=== PATIENT | female | born 1940 | race Caucasian/White ===

== ENCOUNTER 2023-09-26 05:57 | Inpatient (IN) | payer OTHER, SELFPAY ==
--- NOTE | 2023-07-25 11:47 | CM ---
Addendum entered by Tomasa Franco 09/12/23 09:51:
Patient's surgery date has been changed to 09/26/23. Spoke again with patient. She now states that she does not have a rolling walker (hers doesn't have wheels) or a single point cane; she will be getting both from [facility]. She was reminded to watch the
online education program.
Original Note:
Patient is scheduled for an elective L TKR on 08/29/23. Spoke with patient prior to surgery via telephone. Introduced role of Orthopedic Navigator. Patient reports that her son lives with her. Her home is two stories. There is one step to enter and
she has a first floor set up. She currently functions independently. She has a cane and rolling walker. She has never had VN services. PCP is Britta Forrest.
Discussed orthopedic program and post surgical plans. Reviewed anticipated length of stay and that goal is for her to return home at discharge. Also reviewed outpatient PT. Patient is in agreement with tentative plan but will not have transportation
for outpatient PT and will need VN services. She will have support from her son when she goes home.
Patient will complete online education.
Plan: Orthopedic Navigator will remain available to assist with the care of patient and will reassess discharge needs after surgery.
[2023-08-09 12:50] VITALS: BMI 31.0
[2023-08-09 13:53] LABS: Hematocrit 39.1 % (37.0-47.0); Hemoglobin 12.9 g/dL (12.0-16.0); Mean Corpuscular Hgb 30.6 pg (27.0-31.0); Mean Corpuscular Volume 92.9 fL (81.0-99.0); Mean Platelet Volume 9.7 fL (7.4-10.4); Platelet Count 278 10^3/uL (130-400); Red Blood Cell Count 4.21 10^6/uL (4.20-5.40); Red Cell Dist. Width 12.9 % (11.5-14.5)
[2023-08-09 14:03] LABS: ALT (SGPT) 16 U/L (0-35); AST (SGOT) 23 U/L (14-36); Albumin 3.7 g/dl (3.5-5.0); Alkaline Phosphatase 81 U/L (38-126); Blood Urea Nitrogen 16 mg/dl (7-17); Calcium 8.8 mg/dl (8.4-10.2); Carbon Dioxide 29 mmol/L (22-30); Chloride 93 mmol/L (98-107); Estimated Creatinine Clearance 51 ml/min; Glucose 113 mg/dl (70-99); Potassium 4.2 mmol/L (3.5-5.1); Sodium 134 mmol/L (135-145); Total Bilirubin 0.8 mg/dl (0.2-1.3); Total Protein 5.9 g/dl (6.3-8.2); eGFR > 60.00
[2023-08-09 16:09] VITALS: BMI 31.0
[2023-08-10 08:49] LABS: Glycohemoglobin (HgbA1c) 5.7 % (4.0-5.6)
[2023-09-26] VITALS (23 sets, daily range): BP systolic 94–154; BP diastolic 43–81; PULSE 73; O2SAT 96; BMI 31.0
[2023-09-26] MEDS: CELEBREX 200 MG PO (06:30)
[2023-09-26] MEDS: TYLENOL 650 MG PO ×4 (06:30→23:05)
[2023-09-26] MEDS: NORMOSOL-R 1000 IV (06:31)
[2023-09-26] MEDS: DILAUDID 0.5 MG IV (10:26)
[2023-09-26] MEDS: DILAUDID 0.25 MG IV ×2 (10:46→13:13)
[2023-09-26] MEDS: NSS 1000 IV (12:46)
--- NOTE | 2023-09-26 14:36 | PTCARENOTE ---
Pt arrived to [facility] from PACU s/p L TKR. L knee aquacel C/D/I, NV intact. IVF infusing, satting 99% on 2L NC. Pt states no pain at this time. Pt oriented to call lozoya and room, bed locked and in lowest position, call lozoya within reach.
[2023-09-26] MEDS: LEXAPRO 10 MG PO (15:59)
[2023-09-26] MEDS: SYNTHROID PO (15:59)
[2023-09-26] MEDS: ANCEF 5 IV ×2 (16:00→23:05)
[2023-09-26] MEDS: PROTONIX 40 MG PO (16:00)
[2023-09-26] MEDS: LIPITOR 10 MG PO (17:29)
[2023-09-26] MEDS: DILAUDID 2 MG PO (18:11)
[2023-09-26] MEDS: BACTROBAN 2% OINTMENT 1 APPLIC NASAL (20:58)
[2023-09-26] MEDS: SENOKOT 17.1999999999999993 MG PO (20:58)
[2023-09-26] MEDS: COLACE 100 MG PO (20:58)
[2023-09-26] MEDS: COREG 12.5 MG PO (20:58)
[2023-09-26] MEDS: DECADRON 6 MG IV (20:59)
[2023-09-26] MEDS: ELIQUIS 2.5 MG PO (20:59)
[2023-09-27 03:30] VITALS: BP 160/69
[2023-09-27] MEDS: SYNTHROID 75 MCG PO (04:05)
[2023-09-27] MEDS: TYLENOL 650 MG PO ×3 (04:05→12:28)
[2023-09-27 07:00] VITALS: BP 139/71
--- NOTE | 2023-09-27 07:28 | W.PN.ORTHO ---
Today's Communication / Plan
-
Discharge home later today
Assessment
.
Distal Motor Intact: Yes
Dressing:
Clean, dry and intact.
Assessment:
Doing well postop
Plan
.
Surgery / Date: 09/26/2023 L TKA Isadora
DVT Prophylaxis: Other (Eliquis)
Activity:
Out of bed.
PT/OT
Subjective
.
.:
Patient resting comfortably. Doing well
Vital Signs and Labs
.
Vital Signs and Labs:
Lab Results
08/09/23 12:42
08/09/23 12:42
Temp Pulse Resp BP Pulse Ox
98.3 F 94 17 160/69 98
09/27/23 03:30 09/27/23 03:30 09/27/23 03:30 09/27/23 03:30 09/27/23 03:30
Non-invasive Hgb result: 14.3
Physical Exam
-
Pulm: nonlabored
CV: regular
Abd: benign
EXT: LLE: NVI distally. Calf soft. Able to fully extend
--- NOTE | 2023-09-27 08:49 | CM ---
Addendum entered by Tomasa rFanco 09/27/23 11:50:
Patient did well in therapy. She has no concerns about going home. VN services again reviewed.
Original Note:
Reviewed chart and held rounds with PT, OT and nursing. Patient admitted as planned for elective L TKR. Met with patient at bedside. Confirmed information previously obtained for assessment. Also discussed discharge plans. The plan is for patient to
return home at discharge. Her son and daughters will be home with her for through the weekend. Reviewed VN services including start of care (tentatively 09/28), services to be ordered (PT, SN) and frequency/duration of services. Options list provided
and PAC data reviewed. Patient selects VN.
Patient has a rolling walker and a cane at home.
VN referral was completed and sent to [facility] through [employer] with request for start of care on 09/28. Confirmation received of their ability to accept case. classification clerk to fax discharge instructions to [facility] when complete.
Patient will use [facility] pharmacy for discharge prescriptions.
[2023-09-27 09:40] VITALS: BP 142/57; BP 99/58; PULSE 88; PULSE 93; O2SAT 94
[2023-09-27] MEDS: DECADRON 6 MG IV (10:01)
[2023-09-27] MEDS: ELIQUIS 2.5 MG PO (10:03)
[2023-09-27] MEDS: COREG 12.5 MG PO (10:04)
[2023-09-27] MEDS: LEXAPRO 10 MG PO (10:07)
[2023-09-27] MEDS: PROTONIX 40 MG PO (10:07)
[2023-09-27] MEDS: ORETIC 12.5 MG PO (10:07)
[2023-09-27] MEDS: COLACE 100 MG PO (10:07)
[2023-09-27] MEDS: SENOKOT 17.1999999999999993 MG PO (10:08)
[2023-09-27] MEDS: DILAUDID 2 MG PO (10:08)
[2023-09-27] MEDS: BACTROBAN 2% OINTMENT 1 APPLIC NASAL (10:09)
--- NOTE | 2023-09-27 10:27 | W.PN.ORTHO ---
Today's Communication / Plan
-
d/c
Assessment
.
Distal Motor Intact: Yes
Dressing:
Clean, dry and intact.
Assessment:
Restrictive lung disease/chronic hypoxia
--sats stable RA
Hx PE/DVT unprovoked 2019--Eliquis resumed-SCD device for home
Plan
.
Surgery / Date: 09/26/2023 L TKA Isadora
DVT Prophylaxis: Other (Eliquis+ SCD)
Activity:
Out of bed.
PT/OT
Discharge Plan: Home w/ VN
Subjective
.
.:
Patient resting comfortably.
Vital Signs and Labs
.
Vital Signs and Labs:
Lab Results
08/09/23 12:42
08/09/23 12:42
Temp Pulse Resp BP Pulse Ox
98.2 F 94 18 139/71 97
09/27/23 07:00 09/27/23 07:00 09/27/23 07:00 09/27/23 07:00 09/27/23 07:00
Non-invasive Hgb result: 14.3
Physical Exam
-
HEENT: No pallor, cyanosis, or jaundice. Throat clear.
NECK: Supple. No JVD.
RESPIRATORY: Lungs clear to auscultation.
CVS: S1, S2 normal. RRR.� No murmur, rub or gallop.
ABDOMEN: Soft, non-tender. No distension. BS+/normal.
EXTREMITIES: strength equal, no calf pain with palpation
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 No focal deficits. contact lens manufacturer grossly intact
--- NOTE | 2023-09-27 10:42 | W.DS.TRANS ---
DC Summary - Non Linear Editor
-
Discharge Instructions:
Sleep Apnea Risk Low
Discharge Diagnosis/Procedures 09/26/2023 L TKA Isadora
Diet As tolerated
Activity With Walker
Driving Restrictions No driving
Bathing Restrictions OK to Shower
Other Services PT,VN
Instructions:
Stand-Alone Forms: Total Hip/Knee Replacement D/C
Changes to Home Medications: Yes
Discharge Medications:
DC Medications w/original date entered in [employer]
cholecalciferol (vitamin D3) 25 mcg (1,000 unit) tablet 1,000 units PO HS Supplement 05/03/19
levothyroxine 75 mcg tablet 75 mcg PO DAILY Thyroid 05/03/19
simvastatin 20 mg tablet 20 mg PO QPM High cholesterol 12/15/19
apixaban 2.5 mg tablet (Eliquis) 2.5 mg PO BID Blood Clot Prevention/Tx 08/02/23
escitalopram oxalate 10 mg tablet 10 mg PO DAILY depression 08/02/23
hydrochlorothiazide 12.5 mg tablet 12.5 mg PO DAILY Blood Pressure 08/02/23
losartan 25 mg tablet 25 mg PO DAILY Blood Pressure 08/02/23
omeprazole 40 mg capsule,delayed release 40 mg PO DAILY Gastrointestinal Issue 08/02/23
mupirocin 2 % topical ointment 1 applic topical BID infection prevention #1 tube 08/09/23
carvedilol 25 mg tablet (Coreg) 25 mg PO BID Blood Pressure 09/13/23
acetaminophen 325 mg capsule (Tylenol) 650 mg PO QID #2 caps 09/27/23
dexamethasone 4 mg tablet 4 mg PO BID inflammation #6 tabs 09/27/23
docusate sodium 100 mg capsule (Colace) 100 mg PO BID stool softner #1 cap 09/27/23
gabapentin 300 mg capsule 300 mg PO HS sleep/pain #10 caps 09/27/23
magnesium hydroxide 400 mg/5 mL oral suspension (Milk of Magnesia) 30 ml PO HS PRN Constipation #1 mL 09/27/23
oxycodone 5 mg tablet 5 - 10 mg PO Q6HPRN PRN 1 tab moderate-2 tabs severe pain #30 tabs 09/27/23
sennosides 8.6 mg tablet (Senokot) 17.2 mg PO BID laxative #2 tabs 09/27/23
Home Medication Changes
dexamethasone 4 mg tablet 4 mg PO BID inflammation #6 tabs 09/27/23
gabapentin 300 mg capsule 300 mg PO HS sleep/pain #10 caps 09/27/23
oxycodone 5 mg tablet 5 - 10 mg PO Q6HPRN PRN 1 tab moderate-2 tabs severe pain #30 tabs 09/27/23
Pending Results: No
[2023-09-27 11:00] VITALS: BP 127/57
[2023-09-27 11:57] VITALS: BP 87/55; PULSE 75; O2SAT 94
== END 2023-09-27 14:10 | disposition home health service (06) | DRG 470 ==
LOC: 2 SOUTH 05:57
PROVIDERS: ADMITTING PHYSICIAN Orthopaedic Surgery; FAMILY PHYSICIAN Internal Medicine
PROC: 0SRD0J9 Replacement of Left Knee Joint with Synthetic Substitute, Cemented, Open Approach (ICD-10-PCS; 2023-09-26)
DX: M17.12 Unilateral primary osteoarthritis, left knee (principal); Z68.31 Body mass index [BMI] 31.0-31.9, adult; E66.9 Obesity, unspecified; I10 Essential (primary) hypertension; E78.5 Hyperlipidemia, unspecified; I27.20 Pulmonary hypertension, unspecified; Z87.891 Personal history of nicotine dependence; K21.9 Gastro-esophageal reflux disease without esophagitis; E03.9 Hypothyroidism, unspecified; J98.4 Other disorders of lung; R09.02 Hypoxemia; Z79.01 Long term (current) use of anticoagulants; Z86.711 Personal history of pulmonary embolism
CPT/HCPCS: 36415; 73560; 80053; 83036; 85027; 87070; 97110; 97116; 97162; 97166; 97530; 99406; C1713; C1776

== ENCOUNTER 2023-10-08 14:12 | Inpatient (IN) | payer OTHER, SELFPAY ==
[2023-10-08 09:27] VITALS: BMI 27.8
[2023-10-08 09:30] VITALS: BP 132/53
[2023-10-08] MEDS: DUONEB 3 ML INH ×2 (09:49→19:38)
[2023-10-08 09:55] LABS: % Basophils 0.4 % (0-2); % Eosinophils 3.3 % (0-6); % Immature Granulocytes 1.4 % (0-0.5); % Lymphocytes 11.1 % (20.5-51.1); % Monocytes 16.5 % (1.7-9.3); % Neutrophils 67.3 % (42.2-75.2); Absolute Eosinophils 0.3 10^3/uL (0-0.7); Absolute Immature Granulocytes 0.1 10^3/uL (0-0.05); Absolute Lymphocytes 0.9 10^3/uL (1.2-3.4); Absolute Monocytes 1.3 10^3/uL (0.1-0.6); Absolute Neutrophils 5.3 10^3/uL (1.4-6.5); Hematocrit 30.1 % (37.0-47.0); Hemoglobin 9.9 g/dL (12.0-16.0); Mean Corp Hgb Conc. 32.9 g/dL (33.0-37.0); Mean Corpuscular Hgb 30.3 pg (27.0-31.0); Mean Platelet Volume 8.9 fL (7.4-10.4); Nucleated Red Blood Cells % 0 %; Platelet Count 348 10^3/uL (130-400); Red Blood Cell Count 3.27 10^6/uL (4.20-5.40); Red Cell Dist. Width 13.2 % (11.5-14.5); White Blood Cell Count 7.8 10^3/uL (4.8-10.8)
[2023-10-08 10:10] LABS: COVID-19 Antigen Negative (Negative)
[2023-10-08 10:12] LABS: Lactic Acid 0.8 mmol/L (0.7-2.0)
[2023-10-08 10:13] LABS: ALT (SGPT) 15 U/L (0-35); AST (SGOT) 24 U/L (14-36); Albumin 3.2 g/dl (3.5-5.0); Alkaline Phosphatase 87 U/L (38-126); Blood Urea Nitrogen 24 mg/dl (7-17); Calcium 8.6 mg/dl (8.4-10.2); Carbon Dioxide 27 mmol/L (22-30); Chloride 96 mmol/L (98-107); Estimated Creatinine Clearance 50 ml/min; Glucose 113 mg/dl (70-99); Potassium 4.6 mmol/L (3.5-5.1); Sodium 127 mmol/L (135-145); Total Bilirubin 0.6 mg/dl (0.2-1.3); Total Protein 5.6 g/dl (6.3-8.2); eGFR > 60.00
[2023-10-08 10:14] LABS: INR 1.18; PT 15.1 Sec (11.4-14.6)
[2023-10-08 10:16] LABS: APTT 32.4 Sec (23.4-35.0)
[2023-10-08 10:24] LABS: Troponin I 0.013 ng/ml
[2023-10-08 10:46] LABS: NT-proBNP 1310 pg/ml
--- NOTE | 2023-10-08 11:07 | ED.GENMED ---
History of Present Illness
General
Chief Complaint: Breathing Problem
Source: patient and ambulance crew
Exam Limitations: none
Time Seen by Provider: 10/08/23 09:23
Nursing documentation reviewed up to this point in time: agreed with
Travel History
Have you had any contact with someone who has COVID-19?: No
Do you have any symptoms of coronavirus? Fever > 100 degrees, chills, cough, shortness of breath, sore throat, loss of taste or smell, muscle aches, or headache?: Yes
Symptoms:: cough
History of Present Illness
History of Present Illness:
83-year-old female with a past medical history of PE on Eliquis, hypertension, hyperlipidemia, hypothyroidism, GERD who presents to the emergency room for evaluation of shortness of breath in the setting of recent cough and congestion. Patient
notably had left total knee replacement 2 weeks ago and has been in rehab since. Patient says that she has had a cough since her surgery she says for about 2 weeks. She says cough has been much worse over the past week. Over the past few days she
has noticed that she is starting to develop some shortness of breath. Last night she says she woke up in the middle the night severely short of breath, was found to be hypoxic at rehab. EMS was called. On EMS arrival she was apparently wheezing.
She was given Decadron and 2 DuoNeb's by EMS. She says that she did not have any significant improvement. She denies any chest pain. She denies any known fevers or chills. She has had some postoperative swelling in the leg and postoperative pain
but is generally improving. She denies any other complaints today. She is on Eliquis and has been compliant although was held 3 days perioperatively.
Past History
Past History
ED Past Medical History: GERD, HTN, Hypercholesterolemia, Hypothyroidism and Other (Pulmonary embolism)
ED Past Surgical History: Orthopedic (Foot surgery)
Social History
Tobacco: Former smoker
Alcohol: Occasional
Drug: None
Living: with family
Employment: Retired
Family History
Family History: Other (Mother with cancer of the pancreas father with cancer of the lung)
Review of Systems
Review of Systems
All Other Systems: ROS reviewed and negative except as documented in HPI and ROS
Constitutional: Denies fever or chills
EENT: Reports runny nose; Denies sore throat
Respiratory: Reports cough and trouble breathing
Cardiac: Denies chest pain or palpitations
ABD/GI: Denies abdominal pain, nausea, vomiting or diarrhea
: Denies dysuria, frequency or flank pain
Musculoskeletal: Denies neck pain or back pain
Neurological: Denies headache, weakness or numbness
Phy Exam
Physical Exam
Physical Exam:
General: Awake, alert, oriented x3
Head: Normocephalic, atraumatic
Eyes: Conjunctiva normal, sclera anicteric
Throat: Airway intact, handling secretions
Neck: Trachea midline, supple without meningismus
Lungs: Patient is speaking in full sentences, mild tachypnea, mild hypoxia to 88% on room air requiring 2 L nasal cannula; she does have bilateral wheezing throughout all lung morgan and occasional coughing
Heart: Tachycardia with regular rhythm, no murmurs, gallops, or rubs
Abd: Soft, non distended, nontender
Neuro: Cranial nerves grossly intact, speech fluid
Skin: no rash
Extremities: Patient has +2 edema in the left lower extremity with some slight erythema of the lower leg, merari in place along incision left anterior knee appears clean no drainage; good strong pulses in all extremities
Scores
Heart Failure Risk
Heart Failure Risk Score: Not Applicable
Heart Score for Chest Pain Patients
STEMI patient?: Not applicable
Withdrawal Assessment of Alcohol
Withdrawal Assessment Completed?: Not applicable
Course
Orders/Labs/Results
Orders:
Orders
10/08/23 09:34
Electrocardiogram (*1) Urgent
Reason for Study: Shortness of Breath
EKG- Treatment ONCE
CR Chest Portable - 1 View Urgent
Comment:
Reason For Exam: sob, cough, hypoxia
Reason Study Needs to be Portable: Unable to Transport
10/08/23 09:35
Ipratropium/Albuterol Sulfate [Duoneb] 3 ml INH R NOW STA
10/08/23 09:39
Blood Culture Q30M
LEONEL Source: Blood/Venous
Specimen Description:
10/08/23 09:40
COVID-19 Antigen Urgent
Source: Nasal Swab
Complete Blood Count/With Diff Urgent
Comprehensive Metabolic Panel Urgent
Lactate Level [Lactic Acid] Urgent
NT-proBNP Urgent
PTT Urgent
Prothrombin Time Urgent
Troponin I Urgent
Influenza A+B Rapid Molecular Urgent
LEONEL Source: Nasal Swab
Specimen Description:
10/08/23 10:02
Blood Culture Q30M
LEONEL Source: Blood/Venous
Specimen Description:
10/08/23 10:39
CT Chest Pe Study Urgent
Comment:
Reason For Exam: dyspnea, hypoxia, 2 weeks s/p knee replacement
Abnormal Lab Results
10/08/23
09:40
RBC 3.27 L 10^6/uL
(4.20-5.40)
Hgb 9.9 L g/dL
(12.0-16.0)
Hct 30.1 L %
(37.0-47.0)
MCHC 32.9 L g/dL
(33.0-37.0)
Abs Immat Gran (auto) 0.1 H 10^3/uL
(0-0.05)
Absolute Lymphs (auto) 0.9 L 10^3/uL
(1.2-3.4)
Absolute Monos (auto) 1.3 H 10^3/uL
(0.1-0.6)
Immature Gran % 1.4 H %
(0-0.5)
Lymphocytes % 11.1 L %
(20.5-51.1)
Monocytes % 16.5 H %
(1.7-9.3)
PT 15.1 H Sec
(11.4-14.6)
Sodium 127 L mmol/L
(135-145)
Chloride 96 L mmol/L
(98-107)
BUN 24 H mg/dl
(7-17)
Glucose 113 H mg/dl
(70-99)
Total Protein 5.6 L g/dl
(6.3-8.2)
Albumin 3.2 L g/dl
(3.5-5.0)
10/08/23 09:40
10/08/23 09:40
Vital Signs
Initial and Last Documented VS:
Initial Vital Signs
Temp Pulse Resp BP Pulse Ox
37.1 C 101 20 132/53 93
10/08/23 09:30 10/08/23 09:30 10/08/23 09:30 10/08/23 09:30 10/08/23 09:30
Last Documented Vital Signs
Temp Pulse Resp BP Pulse Ox
37.1 C 87 18 132/53 95
10/08/23 09:30 10/08/23 11:30 10/08/23 11:30 10/08/23 09:30 10/08/23 11:30
MDM/Problems Addressed
Differential Diagnosis Includes:
Pneumonia, bronchitis, PE
MDM/Problems Addressed:
83-year-old female with past medical history as documented presents to the emergency department for evaluation of worsening shortness of breath in the setting of recent cough; she had left knee replacement 2 weeks ago and has been in rehab. She was
apparently quite hypoxic at rehab facility, received steroid and DuoNeb prehospital. She arrives to us tachycardic, tachypneic, hypoxic requiring 2 L nasal cannula. Normotensive. Afebrile. Exam as above. Plan to place an IV check labs including
a CBC and a CMP. Will check a troponin and a BNP. Will swab for COVID and influenza. Check a chest x-ray to rule out pneumonia. Would have a low threshold for CTA to rule out PE�somewhat lower suspicion as she does have wheezing and has been on
Eliquis but it was held perioperatively.
Labs reviewed: CBC shows anemia 9.9�decreased from prior but in the setting of recent operation, will need to trend. CMP shows hyponatremia with a glucose of 113. Troponin undetectable, BNP is slightly elevated but she has no other signs of CHF.
Her chest x-ray shows no edema, no pneumonia on my review. She does still have some tachycardia although could be related to DuoNebs with her tachycardia, tachypnea, hypoxia and normal chest x-ray will check a CTA to rule out PE in an abundance of
caution. Will plan for admission pending CT.
CTA negative for PE. Patient gissell on 2 L nasal cannula, still has wheezing and coughing. Suspect acute respiratory failure with hypoxia secondary to acute bronchitis. Will plan for admission for continued management. Discussed with hospitalist
for admission.
Chronic conditions affecting care:
DVT/PE
*Radiology
Radiology exam reviewed: radiology read reviewed
*Pulse Oximetry
Patient hypoxic: no
*EKG
Interpreted by ED Provider?: Yes
Heart Rate: 89
Rate: normal
Rhythm: sinus
[place]: left axis deviation
Interval: normal interval
QRS Pattern: normal QRS
Ischemia: non-specific ST changes
*Critical Care Note
Total Time (30-74mins, 75-104mins- exclusive of procedures): Not Applicable
Data Reviewed
Source: patient, records and ambulance crew
Patient Management
Discussion with other providers: Hospitalist (Discussed with hospitalist)
Escalation/DeEscalation of care consider admission/obs:
Admission indicated
ED Attending Note
-
Portions of this chart may have been created with voice recognition software.� Occasional wrong word or��sound alike� substitutions may have occurred due to the inherent limitations of voice recognition software.
Discharge Plan
Departure
Patient Disposition: Admit
Date of Disposition: 10/08/23
Time of Disposition: 12:03
Admit to doctor: Niyah
Presentation/result/management discussed w/ accepting MD/DO: Hospitalist
Discharge Problem:
Hypoxic respiratory failure, Acute bronchitis, Anemia
Prescriptions:
No Action
levothyroxine 75 MCG tablet
75 mcg PO DAILY
cholecalciferol (vitamin D3) 1,000 UNITS tablet
1,000 units PO HS
simvastatin 20 MG tablet
20 mg PO QPM
omeprazole 40 mg Capsule,Delayed Release(Dr/Ec)
40 mg PO DAILY
losartan 25 mg Tablet
25 mg PO DAILY
escitalopram oxalate 10 mg Tablet
10 mg PO DAILY
hydrochlorothiazide 12.5 mg Tablet
12.5 mg PO DAILY
Eliquis 2.5 mg Tablet
2.5 mg PO BID
mupirocin 2 % ointment
1 applic topical BID Qty: 1 0RF
Patient Comments:
started treatment on saturday09/23/23 in am and was taking BID, last took at home 09/26/23 in am
carvedilol [Coreg] 25 mg Tablet
25 mg PO BID
docusate sodium [Colace] 100 mg capsule
100 mg PO BID Qty: 1 0RF
sennosides [Senokot] 8.6 mg tablet
17.2 mg PO BID Qty: 2 0RF
magnesium hydroxide [Milk of Magnesia] 400 mg/5 mL suspension
30 ml PO HS PRN (Reason: Constipation) Qty: 1 0RF
dexamethasone 4 mg tablet
4 mg PO BID Qty: 6 0RF
Rx Instructions:
take with food
post-op use only
gabapentin 300 mg capsule
300 mg PO HS Qty: 10 0RF
oxycodone 5 mg tablet
5 - 10 mg PO Q6HPRN PRN (Reason: 1 tab moderate-2 tabs severe pain) Qty: 30 0RF
Rx Instructions:
Dx surgery
ongoing therapy
Post-op use
acetaminophen [Tylenol] 325 mg capsule
650 mg PO QID Qty: 2 0RF
Referrals:
Dilcia Forrest MD [Family Provider] -
Interventions
Interventions:
*Risk Screen - Suicide Last Done: 10/08/23 09:31
*General Assessment Last Done: 10/08/23 09:30
*Neglect/Abuse Screening Last Done: 10/08/23 09:31
ED- Fall Risk Assessment Last Done: 10/08/23 11:37
*ED COVID-19 Vaccine History Last Done: 10/08/23 09:48
ED- Cardiac Assessment Last Done: 10/08/23 09:31
ED- Pulmonary Assessment Last Done: 10/08/23 09:31
--- NOTE | 2023-10-08 13:19 | HPS.HSE ---
Addendum entered and electronically signed by Fawad Wolff MD 10/08/23 16:58:
Pt remains very sob
Seen independently and agree with sales and marketing analyst note
Lungs - holo expiratory high freq wheeze with end inspiratory wheeze with coughing spasms on forced expiration
CV reg
Ext no edema
CT-A neg for PE
Imp: active wheeze with respiratory distress most consistent with asthmatic bronchitis
s/p Lt TKR 09/26/23
Hyponatremia
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
P:steroids
empiric abx
continue Eliquis
Pulm consult
Original Note:
Family Physician
-
Family Physician: Dilcia Forrest
Chief Complaint
-
Shortness of breath, cough, wheezing
History of Present Illness
83-year-old female from home, complaining of shortness of breath with productive white cough, wheezing x 5 days. She is status post left TKR by Dr. Muir on 09/26/2023 2 weeks ago she was noted to be hypoxic and short of breath at 4 AM when she
called EMS. she was given Decadron and DuoNebs by EMS. She is on Eliquis for DVT/PE prophylaxis as she had history of DVT PE post-COVID in 2019. She denies fever, chills, chest pain, palpitations, abdominal pain, nausea, vomiting, diarrhea,
hematuria, bloody stools, urinary symptoms. She has postop swelling in the left leg and knee with merari intact. She has home PT coming. Postop discharge note states kejlr-rx-abqe hemoglobin was 14.3 with preop 12.9 although today is 9.9 serum.
The patient is on current Eliquis status post left knee replacement for DVT/PE prophylaxis.
PMH DAILY ALCOHOL USE HTN, HLD, hypothyroidism, moderate/severe AR pulmonary HTN, restrictive lung disease with chronic hypoxia, tobacco abuse/ex-smoker, GERD, PE/DVT unprovoked 2019 post COVID on Eliquis, OA, obesity, psoriasis
Medical History
Past Medical History
Past Medical History: Reports Other
Additional Past Medical History:
Alcohol use/abuse
HTN
HLD
hypothyroidism
moderate/severe AR pulmonary HTN
restrictive lung disease with chronic hypoxia
tobacco abuse/ex-smoker
GERD
Saddle PE/DVT unprovoked 2020 post COVID December 2019 on Eliquis, COVID 30 May 2020
OA
obesity
psoriasis
Past Surgical History: Reports Other
Additional Past Surgical History:
Cataract extraction
Left foot hammertoe repair
Left total knee arthroplasty 08/09/2023
Left TKR 09/26/2023 Dr. Muir
Social History
Tobacco: Former Smoker (Quit 40 years ago)
Alcohol: Daily (1 to 2 glasses a day)
Drug: None
Personal: Single
Living: With Family
Employment: Retired
Family History
Family History: Not pertinent
Allergies / Home Medications
Allergies reflects when Allergies were last updated in [facility].
Home Medications with original date entered in [facility]
Allergy/Medication List:
Allergies
Allergy/AdvReac Type Severity Reaction Status Date / Time
codeine [Codeine] Allergy Itching, Verified 09/26/23 06:10
skin
crawling
Home Medications
levothyroxine 75 mcg tablet 75 mcg PO DAILY Thyroid 05/03/19
simvastatin 20 mg tablet 20 mg PO HS High cholesterol 12/15/19
apixaban 2.5 mg tablet (Eliquis) 2.5 mg PO BID Blood Clot Prevention/Tx 08/02/23
escitalopram oxalate 10 mg tablet 10 mg PO DAILY depression 08/02/23
hydrochlorothiazide 12.5 mg tablet 12.5 mg PO DAILY Blood Pressure 08/02/23
losartan 25 mg tablet 25 mg PO DAILY Blood Pressure 08/02/23
carvedilol 25 mg tablet (Coreg) 25 mg PO BID Blood Pressure 09/13/23
acetaminophen 500 mg tablet (Tylenol Extra Strength) 500 mg PO Q4HPRN PRN mild pain 10/08/23
budesonide 0.5 mg/2 mL suspension for nebulization 0.5 mg inhalation R DAILY 10/08/23
cholecalciferol (vitamin D3) 1 tab PO HS 10/08/23
collagen 1 dose PO DAILY 10/08/23
esomeprazole magnesium 40 mg capsule,delayed release 40 mg PO DAILY 10/08/23
ipratropium 0.5 mg-albuterol 3 mg (2.5 mg base)/3 mL nebulization soln 3 ml inhalation R DAILY 10/08/23
mnmglhvsvomz-uzkugnyq-asubcb tablet 1 tab PO DAILY 10/08/23
Review of Systems
-
History Source: Patient
A 12 point ROS was completed and negative except as noted: Yes
Constitutional: Denies Fever, Fatigue or Chills
EENT: Denies Sore Throat or Runny Nose
Respiratory: Reports Cough (Productive white) and Trouble Breathing (Wheezing)
Cardiac: Denies Chest Pain, Diaphoresis, Palpitations or Syncope
Abdomen/GI: Denies Abdominal Pain, Nausea, Vomiting, Diarrhea, Constipated, Bloody Stools or Black Stools
: Denies Dysuria, Frequency, Flank Pain, Incontinence, Difficulty Voiding or Urgency
Musculoskeletal: Reports Joint Swelling (Postop left knee TKR Merari intact swelling present to entire leg +2 nonpitting); Denies Joint Pain
Skin: Denies Itching or Rash
Neurological: Denies Dizzy, Headache or Weakness
Endocrine: Reports No Symptoms
Hematologic/Lymphatic: Reports No Symptoms
Psych: Reports Calm
Physical Exam
Vital Signs
Vital Signs
Temp Pulse Resp BP Pulse Ox
98.8 F 86 23 132/53 93
10/08/23 09:30 10/08/23 12:45 10/08/23 12:45 10/08/23 09:30 10/08/23 12:47
Physical Exam
General: Comfortable and Conversant; No Pain or Fever
HEENT: NormoCephalic, Anicteric, [place] Conjunctivae, No Ptosis and Oxygen (3 L nasal cannula)
Respiratory: Clear and Wheezes (Holo inspiratory/expiratory wheezing); No Rales
Cardiac: S1/S2, Regular Rhythm and Peripheral Edema (Postop left knee TKR [place] intact swelling present to entire leg +2 nonpitting); No Murmur, Rub, Gallop or JVD
Breast: Deferred by me
GI: Soft, Non Tender, Non Distended, Normal Bowel Sounds and No Hepatosplenomegaly
Rectal: Deferred by Provider
Genito-urinary: Deferred by me
Musculoskeletal: No Clubbing, No Cyanosis and Edema, Left Lower Extremity (Postop left knee TKR Merari intact swelling present to entire leg +2 nonpitting, negative erythema negative drainage); No Edema, Left Upper Extremity, Edema, Right Upper
Extremity or Edema, Right Lower Extremity
Skin: Warm and Dry; No Rash
Neuro: AO x 3, No Motor Deficits, Nonfocal/grossly intact, Cranial Nerves Intact and No Sensory Deficits; No Slurred Speech, Facial Droop or Tremors
Psych: Calm
Laboratory Results
-
10/08/23 09:40
10/08/23 09:40
Laboratory Results
PT 15.1 Sec (11.4-14.6) H 10/08/23 09:40
INR 1.18 10/08/23 09:40
APTT 32.4 Sec (23.4-35.0) 10/08/23 09:40
Lactic Acid 0.8 mmol/L (0.7-2.0) 10/08/23 09:40
Total Bilirubin 0.6 mg/dl (0.2-1.3) 10/08/23 09:40
AST 24 U/L (14-36) 10/08/23 09:40
ALT 15 U/L (0-35) 10/08/23 09:40
Alkaline Phosphatase 87 U/L (38-126) 10/08/23 09:40
Troponin I 0.013 ng/ml 10/08/23 09:40
Impression/Plan
-
Impression/plan:
Admit to MedSurg
#Acute hypoxic resp insuff 2/2 Acute asthmatic bronchitis
#Hx restrictive lung disease with chronic hypoxia
#Former smoker -quit 40 years ago
89% RA, 93% 3 LNC
COVID/flu negative
-Blood cultures x 2
-Sputum culture
-DuoNebs scheduled and as needed
-Continue budesonide daily
-IV Decadron 4 mg every 8 hours
-IV Zithromax, IV Rocephin
-Consult Pulmonary-known to Dr. Patterson
CXR: Slight increased lung markings in the left mid and lower lung zone likely related to atelectasis cannot exclude superimposed pneumonia
Large left retrocardiac hiatal hernia
CT PE study: No evidence of PE
Slight increase in consolidation lateral posterior inferior aspect left upper lobe and medial inferior left lower lobe increased atelectasis rather than PNA
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
NA 127
Check TSH with free T4, urine NA, urine Osmo, serum Osmo
--Hold HCTZ
EKG: NSR 89 bpm, QTc 420 MS no significant change from May 2020
#Anemia-normocytic likely secondary to postop left TKR on 09/26/2023
-Hgb 9.9 was 12.9 August 09, 2023
-Check iron panel, B12, folate
-Stool occult
#Herpes simplex type I upper lip
-Topical acyclovir
#Alcohol use/abuse
Drinks 1 to 2 glasses wine daily
-MSAs screen with protocol
-IV thiamine, IV folate
#Severe OA left knee
#S/P Left TKR 09/26/2023 Dr. Muir
Merari to left knee due to out 10/10/2023
-Using walker to ambulate
-Continue PT/OT eval
-Patient has home PT
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
COVID 19 infection December 2019May 2020
-Patient is on Eliquis 2.5 mg twice daily DVT prophylaxis postsurgery
#HTN-benign
-Continue losartan 25 mg daily, Coreg 25 mg twice daily
#HLD
-Continue Zocor 20 mg at bedtime
#Hypothyroidism
-Check TSH with free T4 reflex
#GERD
-Continue Nexium 40 mg daily
#Moderate/severe AR
#Pulmonary HTN
2D echo 12/28/2022: EF 60-65%, normal LVS LVSF, no wall abnormalities, mild/moderate MR, mild to moderate pulmonic regurg, moderate�severe AR
-Follows with [facility]
#Depression
-Continue Lexapro 10 mg daily
# Obesity due to excess calorie consumption�BMI 27.8kg
-Healthy heart diet weight loss recommended
#Psoriasis
DVT prophylaxis
Patient currently on Eliquis 2.5 mg twice daily postop left knee replacement
Full code
[2023-10-08] MEDS: STERILE WATER FOR INJECTION 10 ML IV (14:31)
[2023-10-08] MEDS: DECADRON 4 MG IV ×2 (14:31→21:12)
[2023-10-08] MEDS: ROCEPHIN 1000 MG IV (14:31)
[2023-10-08 15:38] LABS: Iron 44 ug/dl (37-170)
[2023-10-08 15:48] LABS: Percent Saturation 12 % (20-50); Total Iron Binding Capacity 360 ug/dl (265-497)
[2023-10-08 16:29] LABS: Osmolality Serum 274 mOsm/kg (275-300)
[2023-10-08 16:36] LABS: Ferritin 61.6 ng/ml (11.1-264.0)
[2023-10-08 16:50] VITALS: BMI 29.4
[2023-10-08 16:51] VITALS: BP 149/82
[2023-10-08 17:08] LABS: Folate > 20.0 ng/ml (2.76-20); Vitamin B12 793 pg/ml (239-931)
[2023-10-08 17:28] LABS: INR 1.05; PT 13.7 Sec (11.4-14.6)
[2023-10-08 17:29] LABS: APTT 31.9 Sec (23.4-35.0)
[2023-10-08 17:31] LABS: GGTP 44 U/L (12-43); Magnesium 1.7 mg/dl (1.6-2.3); Phosphorus 4.2 mg/dl (2.5-4.5)
[2023-10-08 17:32] LABS: Alcohol None Detected
[2023-10-08 17:37] LABS: B-Hydroxybutyrate 0.73 mmol/L (0.02-0.27)
--- NOTE | 2023-10-08 17:39 | CON.PUL ---
Consultation
Consultation Request
Date/Time Consultation Requested: 10/08/2023
Date/Time Consultation Performed: 10/08/2023
Requesting Provider: Dr. Wolff
Performing Provider: Dr. Beto Rivera
Reason for Consultation: Acute hypoxemic respiratory insufficiency-asthmatic bronchitis.
Medical History
-
History of Present Illness:
83-year-old woman who came from home to the emergency room complaining of shortness of breath, cough with sputum production, wheezing for the last 5 days. Recently had total knee replacement on 09/26/2023. She was treated with the steroids and
Decadron.
Patient has been on anticoagulation since 2019 pulmonary embolism.
Family History
Family History: Reviewed & Not Pertinent
Allergies / Home Medications
Allergies
Allergy/AdvReac Type Severity Reaction Status Date / Time
codeine [Codeine] Allergy Itching, Verified 09/26/23 06:10
skin
crawling
Home Medications
Medication Instructions Recorded Confirmed Last Taken Type
levothyroxine 75 mcg tablet 75 mcg PO DAILY Thyroid 05/03/19 10/08/23 10/07/23 History
simvastatin 20 mg tablet 20 mg PO HS High cholesterol 12/15/19 10/08/23 10/07/23 History
apixaban 2.5 mg tablet (Eliquis) 2.5 mg PO BID Blood Clot 08/02/23 10/08/23 10/07/23 History
Prevention/Tx
escitalopram oxalate 10 mg tablet 10 mg PO DAILY depression 08/02/23 10/08/23 10/07/23 History
hydrochlorothiazide 12.5 mg tablet 12.5 mg PO DAILY Blood Pressure 08/02/23 10/08/23 10/07/23 History
losartan 25 mg tablet 25 mg PO DAILY Blood Pressure 08/02/23 10/08/23 10/07/23 History
carvedilol 25 mg tablet (Coreg) 25 mg PO BID Blood Pressure 09/13/23 10/08/23 10/07/23 History
acetaminophen 500 mg tablet 500 mg PO Q4HPRN PRN mild pain 10/08/23 10/08/23 2 Days Ago History
(Tylenol Extra Strength) ~10/06/23
budesonide 0.5 mg/2 mL suspension 0.5 mg inhalation R DAILY 10/08/23 10/08/23 10/08/23 04:00 History
for nebulization Lung/Breathing Issues
cholecalciferol (vitamin D3) 1 tab PO HS Supplement 10/08/23 10/08/23 10/07/23 History
collagen 1 dose PO DAILY Supplement 10/08/23 10/08/23 10/07/23 History
esomeprazole magnesium 40 mg 40 mg PO DAILY Gastrointestinal 10/08/23 10/08/23 10/07/23 History
capsule,delayed release Issue
ipratropium 0.5 mg-albuterol 3 mg 3 ml inhalation R DAILY 10/08/23 10/08/23 10/08/23 04:00 History
(2.5 mg base)/3 mL nebulization Lung/Breathing Issues
soln
tqidduqpjmez-tjuulevl-uyydfr tablet 1 tab PO DAILY Supplement 10/08/23 10/08/23 10/07/23 History
Review of Systems
Vitals / Labs / Diagnostic Testing
Vital Signs
Temp Pulse Resp BP Pulse Ox
98.6 F 84 17 149/82 98
10/08/23 16:51 10/08/23 16:51 10/08/23 16:51 10/08/23 16:51 10/08/23 16:51
Lab Data
10/08/23 09:40
10/08/23 09:40
Laboratory Results
10/08/23 10/08/23
09:40 17:04
PT 15.1 H 13.7
INR 1.18 1.05
APTT 32.4 31.9
Microbiology
10/08/23 09:40 Nasal Swab Influenza Types A & B (SON) - Final
Negative for Influenza A & B, NAAT
Negative results must be combined with clinical observations
and patient history.
Nucleic Acid Amplification test (NAAT)performed on the
[employer] platform.
Diagnostic Testing:
Assessment
-
Acute asthmatic bronchitis-possible tracheobronchitis.
CT chest 10/08/2023: Reviewed, showed no evidence for pulmonary embolism or aortic dissection. Left upper lobe and medial inferior left lower lobe consolidation versus atelectasis. Moderate size posterior hiatal hernia.
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
Conditions present prior to admission:
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 Ernst from hematology and also with Dr. Patterson from pulmonary
Restrictive lung disease likely due to body habitus.
Chronic bronchitis-started on nebulizer therapy budesonide/DuoNebs only once a day 08/2023.
Former smoker quit in 1982. 79-[id number] history.
Obesity
GERD
Hypertension
Hypothyroid
Anxiety
Mild restrictive lung disease
Former [id number]-bocl-year smoker-quit 35 years ago
PFT 10/21/13-FEV1 1.47 L (72%), FVC 73%, TLC 76%, DLCO 79%
Foot surgery
Specifically no history of CAD/COPD/asthma/DVT/previous pulmonary embolism/hypercoagulable state/miscarriages
-
Plan and recommendations:
Agree with current therapy-significant bronchospasm on exam.
Mild oxygen requirements which is new for her.
Patient does have chronic cough and bronchitis on nebulizer therapy in the outpatient setting.
No significant airflow obstruction on spirometry.
Quit smoking long time ago.
-
Continue IV dexamethasone
Will need to monitor blood sugars while on high-dose of steroids.
Agree with antibiotics ceftriaxone/Zithromax given CT scan findings.
Aspiration precaution
Incentive spirometry
Increase activity as able
Continue DuoNebs and Pulmicort
Sputum culture if able.
-
DVT prophylaxis: On anticoagulation.
-
Obstructive sleep apnea may be a possibility as well. Should be addressed in the outpatient setting.
Perhaps worsened by narcotics given for chronic pain as well as gabapentin.
Patient reports waking up suddenly at 4 AM in the morning.
-
Will follow
-
Will need short-term follow-up with Dr. Patterson after discharge.
[2023-10-08] MEDS: DUONEB INH (17:50)
[2023-10-08] MEDS: ZOVIRAX OINTMENT 5% 1 APPLIC TOPICAL ×2 (17:56→21:12)
[2023-10-08] MEDS: ZOVIRAX OINTMENT 5% TOPICAL (17:56)
[2023-10-08] MEDS: ZITHROMAX INFUSION 250 IV (17:56)
[2023-10-08] MEDS: COREG 25 MG PO (21:01)
[2023-10-08] MEDS: ELIQUIS 2.5 MG PO (21:02)
[2023-10-08] MEDS: THIAMINE INJECTION 200 MG IV (21:02)
[2023-10-08] MEDS: LIPITOR 10 MG PO (21:12)
[2023-10-08 23:20] VITALS: BP 119/82
[2023-10-09 05:45] LABS: % Basophils 0.3 % (0-2); % Immature Granulocytes 0.8 % (0-0.5); % Lymphocytes 8.3 % (20.5-51.1); % Monocytes 10.8 % (1.7-9.3); % Neutrophils 79.8 % (42.2-75.2); Absolute Immature Granulocytes 0.1 10^3/uL (0-0.05); Absolute Lymphocytes 0.5 10^3/uL (1.2-3.4); Absolute Monocytes 0.7 10^3/uL (0.1-0.6); Absolute Neutrophils 5.2 10^3/uL (1.4-6.5); Hematocrit 30.6 % (37.0-47.0); Hemoglobin 10.1 g/dL (12.0-16.0); Mean Corpuscular Volume 90.8 fL (81.0-99.0); Mean Platelet Volume 8.7 fL (7.4-10.4); Nucleated Red Blood Cells % 0 %; Platelet Count 325 10^3/uL (130-400); Red Blood Cell Count 3.37 10^6/uL (4.20-5.40); White Blood Cell Count 6.5 10^3/uL (4.8-10.8)
[2023-10-09] MEDS: DECADRON 4 MG IV ×3 (06:08→21:10)
[2023-10-09 06:16] LABS: ALT (SGPT) 15 U/L (0-35); AST (SGOT) 18 U/L (14-36); Albumin 3.1 g/dl (3.5-5.0); Alkaline Phosphatase 87 U/L (38-126); Blood Urea Nitrogen 19 mg/dl (7-17); Calcium 9.4 mg/dl (8.4-10.2); Carbon Dioxide 32 mmol/L (22-30); Chloride 93 mmol/L (98-107); Estimated Creatinine Clearance 59 ml/min; Glucose 145 mg/dl (70-99); Potassium 4.3 mmol/L (3.5-5.1); Sodium 131 mmol/L (135-145); Total Bilirubin 0.5 mg/dl (0.2-1.3); Total Protein 5.7 g/dl (6.3-8.2); eGFR > 60.00
[2023-10-09 06:37] LABS: TSH Reflex To Free T4 0.33 uIU/ml (0.47-4.68)
[2023-10-09 07:00] VITALS: BP 159/77
[2023-10-09 07:06] LABS: Free T4 1.44 ng/dl (0.78-2.19)
[2023-10-09] MEDS: DUONEB 3 ML INH ×4 (07:59→20:28)
[2023-10-09] MEDS: PULMICORT 0.5 MG INH (08:00)
--- NOTE | 2023-10-09 08:53 | VNURNOTE ---
Patient is current with [facility] since 09/28 w/SN/PT, will monitor progress and plan at discharge.
[2023-10-09] MEDS: LEXAPRO 10 MG PO (09:39)
[2023-10-09] MEDS: ELIQUIS 2.5 MG PO ×2 (09:39→21:10)
[2023-10-09] MEDS: SYNTHROID 75 MCG PO (09:39)
[2023-10-09] MEDS: THERAGRAN 1 TABLET PO (09:39)
[2023-10-09] MEDS: COREG 25 MG PO ×2 (09:39→21:10)
[2023-10-09] MEDS: FOLVITE 1 MG PO (09:40)
[2023-10-09] MEDS: COZAAR 25 MG PO (09:40)
[2023-10-09] MEDS: PROTONIX 40 MG PO (09:40)
[2023-10-09] MEDS: THIAMINE INJECTION 200 MG IV ×2 (09:41→21:11)
[2023-10-09] MEDS: ZOVIRAX OINTMENT 5% 1 APPLIC TOPICAL ×5 (09:41→21:11)
--- NOTE | 2023-10-09 10:54 | PTOTSP ---
ST Swallowing Evaluation
Pt presents with oral parameters that are WFL. Pt presents with suspected slight to mild pharyngoesophageal dysphagia 2/2 hiatal hernia and GERD. Pt also presents with acute dysphonia 2/2 suspected recent intubation vs reflux.
Recommendations:
- Continue with REGULAR SOLIDS and THIN LIQUIDS with meds as tolerated.
- General aspiration precautions.
- REFLUX PRECAUTIONS - no PO intake within 60 minutes of lying flat; avoid acidic foods/drinks.
- ENT evaluation for dysphonia.
- UPPER LINING CEMENTER to follow for diet tolerance and to determine if VFSS is warranted.
--- NOTE | 2023-10-09 11:33 | W.PN.PUL3 ---
Today's Communication / Plan
-
Cont. Dexamethasone at current dose
Cont. Nebs- Pulmicort/duones
Cont. ABX
will check Home ox needs tomorrow in AM.
Assessment
-
Acute asthmatic bronchitis-possible tracheobronchitis.
CT chest 10/08/2023: Reviewed, showed no evidence for pulmonary embolism or aortic dissection. Left upper lobe and medial inferior left lower lobe consolidation versus atelectasis. Moderate size posterior hiatal hernia.
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
Conditions present prior to admission:
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 Ernst from hematology and also with Dr. Patterson from pulmonary
Restrictive lung disease likely due to body habitus.
Chronic bronchitis-started on nebulizer therapy budesonide/DuoNebs only once a day 08/2023.
Former smoker quit in 1982. 57-[id number]-kbfd history.
Obesity
GERD
Hypertension
Hypothyroid
Anxiety
Mild restrictive lung disease
Former zmfjhp-99-sixw-year smoker-quit 35 years ago
PFT 10/21/13-FEV1 1.47 L (72%), FVC 73%, TLC 76%, DLCO 79%
Foot surgery
Specifically no history of CAD/COPD/asthma/DVT/previous pulmonary embolism/hypercoagulable state/miscarriages
-
Plan and recommendations:
Agree with current therapy-significant bronchospasm on exam.
Mild oxygen requirements which is new for her- wean off as able.
Patient does have chronic cough and bronchitis on nebulizer therapy in the outpatient setting.
No significant airflow obstruction on spirometry.
Quit smoking long time ago.
-
Continue IV dexamethasone at the current dose for one additional day.
Will need to monitor blood sugars while on high-dose of steroids.
Agree with antibiotics ceftriaxone/Zithromax (transitioned to PO) given CT scan findings.
Aspiration precaution
Incentive spirometry
Increase activity as able
Continue DuoNebs and Pulmicort- (takes in outpx per [facility] notes, pt not using consistently)
Sputum culture if able.
-
GERD and aspiration precautions.
-
DVT prophylaxis: On anticoagulation.
-
Obstructive sleep apnea may be a possibility as well. Should be addressed in the outpatient setting.
Perhaps worsened by narcotics given for chronic pain as well as gabapentin.
Patient reports waking up suddenly at 4 AM in the morning.
-
Will follow
-
Will need short-term follow-up with Dr. Patterson after discharge.
Subjective Data
-
Date of Service:
Date of Service: October 09, 2023
Chief Complaint: Pulmonary Follow Up (Acute respiratory insuff. Asthmatic bronchitis.)
Review of Systems
General: Fever (n)
Cardiopulmonary: Dyspnea, Dyspnea on Exertion, Cough and Wheezing
GI: Abdominal Pain (n) and Nausea (n)
Objective Data
Data Reviewed
Vital Signs / I&O / Oxygen:
Vital Signs
Temp Pulse Resp BP Pulse Ox
97.4 F 74 18 159/77 99
10/09/23 07:00 10/09/23 08:01 10/09/23 08:01 10/09/23 07:00 10/09/23 08:01
Intake and Output
10/08/23 10/09/23 10/10/23
06:59 06:59 06:59
Intake Total 360 / 360
Balance 360 / 360
SaO2 99
Nasal Cannula flow liters per 3
minute
Physical Exam
General: Respiratory Distress (n) and Comfortable
HEENT: Normocephalic
Respiratory: Wheeze
GI: Soft and Non Distended
Neurology: Awake
Labs/Micro/Reports
Lab Data
10/09/23 05:18
10/09/23 05:18
Laboratory Results
10/08/23
17:04
PT 13.7
INR 1.05
APTT 31.9
Microbiology
10/08/23 10:02 Blood/Venous Blood Culture - Preliminary
No Growth in 24 hours- Final report to follow
10/08/23 09:39 Blood/Venous Blood Culture - Preliminary
No Growth in 24 hours- Final report to follow
10/08/23 09:40 Nasal Swab Influenza Types A & B (SON) - Final
Negative for Influenza A & B, NAAT
Negative results must be combined with clinical observations
and patient history.
Nucleic Acid Amplification test (NAAT)performed on the
[employer] platform.
[2023-10-09 12:00] VITALS: PULSE 82; O2SAT 93
[2023-10-09 12:07] VITALS: PULSE 82; O2SAT 97
[2023-10-09 12:43] VITALS: PULSE 82; O2SAT 93
--- NOTE | 2023-10-09 12:44 | W.PN.HOSP.TC ---
Today's Communication/Plan
-
see outlined plan below
Assessment / Plan
Assessment / Plan
Assessment:
Acute asthmatic bronchitis-possible tracheobronchitis.
Restrictive lung disease likely due to body habitus.
Chronic bronchitis-started on nebulizer therapy budesonide/DuoNebs only once a day 08/2023.
Former smoker quit in 1982.� 96-xdcb-hmba history.
- CT chest 10/08/2023: Reviewed, showed no evidence for pulmonary embolism or aortic dissection.� Left upper lobe and medial inferior left lower lobe consolidation versus atelectasis.� Moderate size posterior hiatal hernia.
- pulmonary following
- continue Decadron, day 2
- continue Rocephin/Azithromycin, day 2
- continue Budesonide/DuoNeb
- speech therapy
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
- monitor Na
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
- PT/OT
- continue on Eliquis 2.5mg BID
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 Ernst from hematology and also with Dr. Patterson from pulmonary
- continue on Eliquis 2.5mg BID - dose as per OP Hematology
Obesity
GERD
- continue PPI daily
Essential hypertension
- continue Losartan/Coreg
Hypothyroidism - continue LT4
Anxiety
DVT ppx: Eliquis
Code: Full
Anticipated Discharge: > 48 hours
Subjective/Interval History
-
Date of Service: October 09, 2023
denies any new complaints
reports breathing improving
Objective Data
-
Labs:
Laboratory Results
10/09/23
05:18
WBC 6.5
Hgb 10.1 L
Hct 30.6 L
Plt Count 325
Sodium 131 L
Potassium 4.3
Chloride 93 L
Carbon Dioxide 32 H
BUN 19 H
Creatinine 0.7
Glucose 145 H
Calcium 9.4
Total Bilirubin 0.5
AST 18
ALT 15
Alkaline Phosphatase 87
Vital Signs:
Vital Signs
Temp Pulse Resp BP Pulse Ox
97.4 F 75 16 159/77 96
10/09/23 07:00 10/09/23 12:11 10/09/23 12:11 10/09/23 07:00 10/09/23 12:11
I&O
10/08/23 10/09/23 10/10/23
06:59 06:59 06:59
Intake Total 360 / 360
Balance 360 / 360
Physical Exam
-
General: No Apparent Distress
HEENT: Normocephalic and Atraumatic
Respiratory: Wheezes; Negative Rhonchi
Cardiac: Regular Rhythm and S1/S2
GI: Soft
Genito-urinary: No Costovertebral Tender
Musculoskeletal: No Edema
Neuro: AO x 3
Psych: Calm
Data Reviewed
-
Total Time Spent with Patient (in minutes): 45
Labs: Labs Reviewed by me
[2023-10-09 12:53] LABS: Urine Albumin Trace (Neg - Trace); Urine Bilirubin Negative (Negative); Urine Character Clear (Clear); Urine Color Yellow; Urine Glucose Negative (Negative); Urine Ketone Trace (Negative); Urine Leukocyte Negative (Negative); Urine Nitrite Negative (Negative); Urine Occult Blood Negative (Negative); Urine Specific Gravity 1.025 (<1.030); Urine Urobilinogen Negative (Neg - 1+)
[2023-10-09 13:14] LABS: Amphetamines Negative (Negative); Barbiturates Negative (Negative); Benzodiazepines Negative (Negative); Buprenorphine Negative (Negative); Cocaine Negative (Negative); Marijuana Negative (Negative); Methadone Negative (Negative); Methamphetamines Negative (Negative); Opiates Positive (Negative); Phencyclidine Negative (Negative); Tricyclic Antidepressants Negative (Negative)
[2023-10-09 13:40] LABS: Fentanyl, Urine Negative (Negative)
[2023-10-09] MEDS: STERILE WATER FOR INJECTION 10 ML IV (14:26)
[2023-10-09] MEDS: ROCEPHIN 1000 MG IV (14:26)
[2023-10-09 15:00] VITALS: BP 124/54
[2023-10-09 16:02] LABS: Osmolality Urine 696 mOsm/kg (300-900)
[2023-10-09] MEDS: ZITHROMAX 500 MG PO (16:20)
--- NOTE | 2023-10-09 16:50 | CM ---
Alert awake oriented patient who lives with son Guzman in a one story home They live in a 1 story home with 1 step to enter and bath bed room . She is assist and all activities of daily living.She is current [facility].She declined substance abuse
counselling. New oxygen- Will watch for oxygen needs.
[place]
Pharmacy [facility] [place]
PCP Dr Dilcia Forrest
PLAN Home with [facility]
[2023-10-09] MEDS: LIPITOR 10 MG PO (21:10)
[2023-10-09] MEDS: REFRESH EYE DROPS (PF) 1 DROPS OPHTH (21:13)
[2023-10-09 23:42] VITALS: BP 143/71
[2023-10-10] MEDS: DUONEB 3 ML INH ×5 (04:22→20:38)
[2023-10-10 05:46] LABS: % Basophils 0.2 % (0-2); % Immature Granulocytes 0.7 % (0-0.5); % Lymphocytes 5.5 % (20.5-51.1); % Monocytes 6.5 % (1.7-9.3); % Neutrophils 87.1 % (42.2-75.2); Absolute Immature Granulocytes 0.1 10^3/uL (0-0.05); Absolute Lymphocytes 0.6 10^3/uL (1.2-3.4); Absolute Monocytes 0.7 10^3/uL (0.1-0.6); Absolute Neutrophils 9.3 10^3/uL (1.4-6.5); Hematocrit 29.4 % (37.0-47.0); Hemoglobin 9.9 g/dL (12.0-16.0); Mean Corp Hgb Conc. 33.7 g/dL (33.0-37.0); Mean Corpuscular Volume 89.1 fL (81.0-99.0); Mean Platelet Volume 8.8 fL (7.4-10.4); Nucleated Red Blood Cells % 0 %; Platelet Count 335 10^3/uL (130-400); Red Cell Dist. Width 12.9 % (11.5-14.5); White Blood Cell Count 10.7 10^3/uL (4.8-10.8)
[2023-10-10] MEDS: SYNTHROID 75 MCG PO (05:54)
[2023-10-10] MEDS: DECADRON 4 MG IV ×3 (05:54→21:15)
[2023-10-10 06:12] LABS: ALT (SGPT) 15 U/L (0-35); AST (SGOT) 20 U/L (14-36); Albumin 3.3 g/dl (3.5-5.0); Alkaline Phosphatase 88 U/L (38-126); Blood Urea Nitrogen 23 mg/dl (7-17); Calcium 9.2 mg/dl (8.4-10.2); Carbon Dioxide 32 mmol/L (22-30); Chloride 93 mmol/L (98-107); Estimated Creatinine Clearance 59 ml/min; Glucose 141 mg/dl (70-99); Potassium 4.9 mmol/L (3.5-5.1); Sodium 126 mmol/L (135-145); Total Bilirubin 0.4 mg/dl (0.2-1.3); Total Protein 5.8 g/dl (6.3-8.2); eGFR > 60.00
[2023-10-10 07:00] VITALS: BP 133/88
[2023-10-10] MEDS: PULMICORT 0.5 MG INH (07:40)
[2023-10-10] MEDS: COZAAR 25 MG PO (08:59)
[2023-10-10] MEDS: THERAGRAN 1 TABLET PO (08:59)
[2023-10-10] MEDS: ELIQUIS 2.5 MG PO ×2 (09:00→21:15)
[2023-10-10] MEDS: PROTONIX 40 MG PO (09:00)
[2023-10-10] MEDS: LEXAPRO 10 MG PO (09:00)
[2023-10-10] MEDS: FOLVITE 1 MG PO (09:00)
[2023-10-10] MEDS: ZOVIRAX OINTMENT 5% 1 APPLIC TOPICAL ×5 (09:00→21:16)
[2023-10-10] MEDS: COREG 25 MG PO ×2 (09:00→21:15)
--- NOTE | 2023-10-10 09:00 | PTOTSP ---
Speech Language Pathology
Pt seen for dysphagia tx. Pt reported no difficulty swallowing. Discussed hiatal hernia and hx of GERD. Pt reported she noted regurgitation of liquids only 2 times in her life. She eats smaller more frequent meals to manage this. Baseline cough
followed by wheeze noted. No increase in frequency in cough noted with P.O. intake.
Seen with P.O. trials of puree, regular solids, and thin liquids, in addition to multiple meds at once with water. Adequate mastication, bolus formation, and A-P transit noted with no oral residue. No overt signs of aspiration. Suspect any issues
are esophageal in nature, and it appears pt manages these issues with strategies, such as smaller more frequent meals.
Recommend:
(1) Continue regular solids/thin liquids
(2) Esophageal precautions
(3) Meds as tolerated
(4) Will defer VSE given no elevated WBC and tolerance of diet
(5) Can consider OP GI follow up if concern for regurgitation
(6) SYSTEMS QA ANALYST to sign off. Please reconsult as indicated.
[2023-10-10] MEDS: THIAMINE INJECTION IV ×3 (09:04→21:24)
--- NOTE | 2023-10-10 11:30 | W.PN.HOSP.TC ---
Today's Communication/Plan
-
wean O2
continue current treatment plan without change until seen by pulmonary
add Melatonin
add nasal spray
Assessment / Plan
Assessment / Plan
Assessment:
Acute asthmatic bronchitis-possible tracheobronchitis.
Restrictive lung disease likely due to body habitus.
Chronic bronchitis-started on nebulizer therapy budesonide/DuoNebs only once a day 08/2023.
Former smoker quit in 1982.� 33-gwsj-nowo history.
- CT chest 10/08/2023: Reviewed, showed no evidence for pulmonary embolism or aortic dissection.� Left upper lobe and medial inferior left lower lobe consolidation versus atelectasis. Moderate size posterior hiatal hernia.
- pulmonary following
- continue Decadron, day 3
- continue Rocephin/Azithromycin, day 3
- continue Budesonide/DuoNeb
- speech therapy
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
- monitor Na
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
- PT/OT
- continue on Eliquis 2.5mg BID
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 Ernst from hematology and also with Dr. Patterson from pulmonary
- continue on Eliquis 2.5mg BID - dose as per OP Hematology
Obesity
GERD
- continue PPI daily
Essential hypertension
- continue Losartan/Coreg
Hypothyroidism - continue LT4
Anxiety
DVT ppx: Eliquis
Code: Full
Anticipated Discharge: > 48 hours
Subjective/Interval History
-
Date of Service: October 10, 2023
she reports little improvement today but reports no SOB. did not sleep well
Objective Data
-
Labs:
Laboratory Results
10/10/23
05:30
WBC 10.7
Hgb 9.9 L
Hct 29.4 L
Plt Count 335
Sodium 126 L
Potassium 4.9
Chloride 93 L
Carbon Dioxide 32 H
BUN 23 H
Creatinine 0.7
Glucose 141 H
Calcium 9.2
Total Bilirubin 0.4
AST 20
ALT 15
Alkaline Phosphatase 88
Vital Signs:
Vital Signs
Temp Pulse Resp BP Pulse Ox
97.3 F 75 16 133/88 97
10/10/23 07:00 10/10/23 11:27 10/10/23 11:27 10/10/23 07:00 10/10/23 11:27
I&O
10/09/23 10/10/23 10/11/23
06:59 06:59 06:59
Intake Total 360 / 360 720 / 720
Balance 360 / 360 720 / 720
Physical Exam
-
General: No Apparent Distress
HEENT: Normocephalic and Atraumatic
Respiratory: Wheezes (mild)
Cardiac: Regular Rhythm and S1/S2
GI: Soft
Musculoskeletal: No Edema
Neuro: AO x 3
Hematologic / Lymphatic: No Lymphadenopathy
Psych: Calm
Data Reviewed
-
Total Time Spent with Patient (in minutes): 42
Labs: Labs Reviewed by me
[2023-10-10 12:04] LABS: Urine Sodium 55 mmol/L (30-90)
[2023-10-10 15:00] VITALS: BP 160/79
[2023-10-10] MEDS: OCEAN, SALINE MIST 2 SPRAYS NASAL ×2 (15:16→21:26)
[2023-10-10] MEDS: ROCEPHIN 1000 MG IV (15:18)
[2023-10-10] MEDS: STERILE WATER FOR INJECTION 10 ML IV (15:18)
--- NOTE | 2023-10-10 16:38 | W.PN.PUL3 ---
Today's Communication / Plan
-
Decreased steroids, transition to prednisone tomorrow
cont. Nebulizers
Wean FiO2
Hopefully discharge planning tomorrow
Assessment
-
Acute asthmatic bronchitis-possible tracheobronchitis.
CT chest 10/08/2023: Reviewed, showed no evidence for pulmonary embolism or aortic dissection. Left upper lobe and medial inferior left lower lobe consolidation versus atelectasis. Moderate size posterior hiatal hernia.
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
Conditions present prior to admission:
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 Ernst from hematology and also with Dr. Patterson from pulmonary
Restrictive lung disease likely due to body habitus.
Chronic bronchitis-started on nebulizer therapy budesonide/DuoNebs only once a day 08/2023.
Former smoker quit in 1982. 08-sldl-jryj history.
Obesity
GERD
Hypertension
Hypothyroid
Anxiety
Mild restrictive lung disease
Former ciwcra-55-jrhu-year smoker-quit 35 years ago
PFT 10/21/13-FEV1 1.47 L (72%), FVC 73%, TLC 76%, DLCO 79%
Foot surgery
Specifically no history of CAD/COPD/asthma/DVT/previous pulmonary embolism/hypercoagulable state/miscarriages
-
Plan and recommendations:
Patient is starting to feel better.
Chest congestion improving.
Ambulating with assistance to the restroom, less short of breath
Oxygen has been weaned off.
Lung exam with better air movement. Less bronchospastic.
-
Patient does have chronic cough and bronchitis on nebulizer therapy in the outpatient setting.
No significant airflow obstruction on spirometry.
Quit smoking long time ago.
-
Will start decreasing IV corticosteroids to 2 mg 8 every 8 hours IV-transition to prednisone tomorrow if continues to improve. 40 mg and decrease by 10 mg every 48 hours to off.
Will need to monitor blood sugars while on high-dose of steroids.
Cont. antibiotics ceftriaxone/Zithromax (transitioned to PO) given CT scan findings. Hopefully can transition to oral antibiotics tomorrow and complete total of 7 days.
Aspiration precaution
Incentive spirometry
Increase activity as able
Continue DuoNebs and Pulmicort- (takes in outpx per [facility] notes, pt not using consistently)- Upon DC should continue BID.
Sputum culture if able.- has not been able to produce.
-
GERD and aspiration precautions.
-
DVT prophylaxis: On anticoagulation.
-
Obstructive sleep apnea may be a possibility as well. Should be addressed in the outpatient setting.
Perhaps worsened by narcotics given for chronic pain as well as gabapentin.
Patient reports waking up suddenly at 4 AM in the morning.
-
Will follow
Hoping for her to be ready for discharge tomorrow
-
Will need short-term follow-up with Dr. Patterson after discharge.
Subjective Data
-
Date of Service:
Date of Service: October 10, 2023
Chief Complaint: Pulmonary Follow Up (Acute respiratory insuff. Asthmatic bronchitis.)
Objective Data
Data Reviewed
Vital Signs / I&O / Oxygen:
Vital Signs
Temp Pulse Resp BP Pulse Ox
97.4 F 76 14 160/79 98
10/10/23 15:00 10/10/23 15:19 10/10/23 15:19 10/10/23 15:00 10/10/23 15:00
Intake and Output
10/09/23 10/10/23 10/11/23
06:59 06:59 06:59
Intake Total 360 / 360 720 / 720
Balance 360 / 360 720 / 720
SaO2 98
Nasal Cannula flow liters per 2
minute
Physical Exam
General: Respiratory Distress (n) and Comfortable
HEENT: Normocephalic
Respiratory: Wheeze
GI: Soft and Non Distended
Neurology: Awake
Labs/Micro/Reports
Lab Data
10/10/23 05:30
10/10/23 05:30
Microbiology
10/08/23 10:02 Blood/Venous Blood Culture - Preliminary
No Growth in 48 hours- Final report to follow
10/08/23 09:39 Blood/Venous Blood Culture - Preliminary
No Growth in 48 hours- Final report to follow
10/08/23 09:40 Nasal Swab Influenza Types A & B (SON) - Final
Negative for Influenza A & B, NAAT
Negative results must be combined with clinical observations
and patient history.
Nucleic Acid Amplification test (NAAT)performed on the
[employer] platform.
--- NOTE | 2023-10-10 16:40 | PN.CDI ---
CDI
- -
CDI:
Physician Documentation Request
Admit Date: 10/08/23 14:12
Dear Doctor Mitch,
Please review the following and provide your response in the progress notes.
Clinical Indicators:
Pt admitted with hypoxia/ Acute asthmatic bronchitis /HX of restrictive lung disease
Documented per EMS report, ' Shortness of breath with a wet/productive cough x 2 days..woke up this morning around 400 hrs with increased shortness of breath and has been more dependent on PRN albuterol treatments ...increased work of breathing
...wet productive cough/ Inspiratory/Expiratory wheezing...Pulse 98, Resp 36 effort labored O2 80 % RA...'
Documented per ED, ' Last night she says she woke up in the middle the night severely short of breath, was found to be hypoxic at rehab. EMS was called. On EMS arrival she was apparently wheezing. She was given Decadron and 2 DuoNeb's by EMS.
She says that she did not have any significant improvement..Patient is speaking in full sentences, mild tachypnea, mild hypoxia to 88% on room air requiring 2 L nasal cannula; she does have bilateral wheezing throughout all lung morgan and
occasional coughing Heart: Tachycardia.. Hypoxic respiratory failure, Acute bronchitis, Anemia..'
Per vital signs has been on 2-4 liters of oxygen ,HR as high as 101, Resp 28
Clarify which of the following accurately represents the patient's respiratory status:
Acute hypoxic respiratory failure
Hypoxia-only
Other
Additional information for Respiratory Failure:
Recognized criteria for Respiratory Failure (Source: [facility] May/Jun 2013)
ABGs: (1 or more) Symptoms Please indicate type if known
1. p)2 <60 or RA SPO2 <91% on RA 1. Tachypnea, SOB, dyspnea Hypoxic
2. pCO2 50 and pH <7.35 2. Use of accessory muscles Hypercapnic
3. pO2 decrease of pCO2 increase by 3. Pallor or cyanosis Hypoxic and Hypercapnic
10 mmHg from baseline if known 4. Anxiety or restlessness Unable to determine
5. Unable to speak in full sentences
Supplemental O2 of > 40% (5LPM) Intubation is not required
Use of terms such as suspected, likely, concern for, or probable (associated with a specific diagnosis that is being evaluated, monitored, or treated as if it exists) are acceptable and can be coded in the inpatient setting, when documented at the
time of discharge.
Thank you,
Leila Patel RN
CDI Specialist
[employer]
Please use your independent medical judgment in providing your response.
[2023-10-10 16:53] VITALS: BP 170/85; PULSE 83; O2SAT 98
[2023-10-10] MEDS: ZITHROMAX 500 MG PO (17:13)
[2023-10-10] MEDS: MELATONIN 5 MG PO (21:14)
[2023-10-10] MEDS: LIPITOR 10 MG PO (21:14)
[2023-10-10] MEDS: REFRESH EYE DROPS (PF) 1 DROPS OPHTH (21:14)
[2023-10-10] MEDS: ANESTHETIC LOZENGE 1 LOZENGE PO (22:15)
[2023-10-10 23:04] VITALS: BP 157/84
[2023-10-11 05:46] LABS: % Basophils 0.1 % (0-2); % Immature Granulocytes 0.4 % (0-0.5); % Lymphocytes 5.9 % (20.5-51.1); % Monocytes 4.8 % (1.7-9.3); % Neutrophils 88.8 % (42.2-75.2); Absolute Lymphocytes 0.6 10^3/uL (1.2-3.4); Absolute Monocytes 0.5 10^3/uL (0.1-0.6); Absolute Neutrophils 8.7 10^3/uL (1.4-6.5); Hematocrit 29.9 % (37.0-47.0); Hemoglobin 9.9 g/dL (12.0-16.0); Mean Corp Hgb Conc. 33.1 g/dL (33.0-37.0); Mean Corpuscular Hgb 29.7 pg (27.0-31.0); Mean Corpuscular Volume 89.8 fL (81.0-99.0); Mean Platelet Volume 8.7 fL (7.4-10.4); Nucleated Red Blood Cells % 0 %; Platelet Count 342 10^3/uL (130-400); Red Blood Cell Count 3.33 10^6/uL (4.20-5.40); Red Cell Dist. Width 12.6 % (11.5-14.5); White Blood Cell Count 9.8 10^3/uL (4.8-10.8)
[2023-10-11 06:10] LABS: ALT (SGPT) 16 U/L (0-35); AST (SGOT) 19 U/L (14-36); Albumin 3.2 g/dl (3.5-5.0); Alkaline Phosphatase 79 U/L (38-126); Blood Urea Nitrogen 24 mg/dl (7-17); Calcium 9.1 mg/dl (8.4-10.2); Carbon Dioxide 33 mmol/L (22-30); Chloride 91 mmol/L (98-107); Estimated Creatinine Clearance 59 ml/min; Glucose 134 mg/dl (70-99); Potassium 4.8 mmol/L (3.5-5.1); Sodium 127 mmol/L (135-145); Total Bilirubin 0.3 mg/dl (0.2-1.3); Total Protein 5.6 g/dl (6.3-8.2); eGFR > 60.00
[2023-10-11] MEDS: DECADRON 4 MG IV ×2 (06:13→14:11)
[2023-10-11] MEDS: SYNTHROID 75 MCG PO (06:13)
[2023-10-11 07:00] VITALS: BP 176/99
[2023-10-11] MEDS: PULMICORT 0.5 MG INH (07:08)
[2023-10-11] MEDS: DUONEB 3 ML INH ×4 (07:08→19:32)
[2023-10-11] MEDS: COREG 25 MG PO ×2 (08:28→19:57)
[2023-10-11] MEDS: PROTONIX 40 MG PO (08:28)
[2023-10-11] MEDS: ZOVIRAX OINTMENT 5% 1 APPLIC TOPICAL ×5 (08:29→21:34)
[2023-10-11] MEDS: COZAAR 50 MG PO (08:30)
[2023-10-11] MEDS: THERAGRAN 1 TABLET PO (08:35)
[2023-10-11] MEDS: ELIQUIS 2.5 MG PO ×2 (08:35→19:57)
[2023-10-11] MEDS: THIAMINE INJECTION IV (08:35)
[2023-10-11] MEDS: FOLVITE 1 MG PO (08:35)
[2023-10-11] MEDS: LEXAPRO 10 MG PO (08:36)
[2023-10-11] MEDS: COZAAR PO (08:47)
--- NOTE | 2023-10-11 13:48 | W.CON.NEPH ---
Consultation
-
Date/Time Consultation Requested: 10/11/23 12 noon
Date/Time Consultation Performed: 10/11/2023 148pm
Requesting Provider: Dr. Meyer
Performing Provider: Dr. Small
Reason for Consultation: Hyponatremia
Medical History
-
Chief Complaint: Hyponatremia
History of Present Illness:
83-year-old woman who came from home to the emergency room complaining of shortness of breath, cough with sputum production, wheezing for last 5 days.� Recently had total knee replacement on 09/26/2023.� She was treated with the steroids and Decadron.
Patient has been on anticoagulation since 2019 pulmonary embolism.
She is on hydrochlorothiazide and losartan for hypertension. She does have known chronic hyponatremia.
Past Medical History
Chronic bronchitis, GERD, hypertension, hypothyroidism, anxiety, restrictive lung disease, submassive PE, COVID, left knee replacement, chronic hyponatremia, psoriasis, left foot hammertoe repair, cataract extraction
Social History
Tobacco: Former Smoker
Alcohol: Daily
Family History
Family History: Not Pertinent
Allergies / Home Medications
Allergy/AdvReac Type Severity Reaction Status Date / Time
codeine [Codeine] Allergy Itching, Verified 09/26/23 06:10
skin
crawling
Medication Instructions Recorded Confirmed Type
levothyroxine 75 mcg tablet 75 mcg PO DAILY Thyroid 05/03/19 10/08/23 History
simvastatin 20 mg tablet 20 mg PO HS High cholesterol 12/15/19 10/08/23 History
apixaban 2.5 mg tablet (Eliquis) 2.5 mg PO BID Blood Clot 08/02/23 10/08/23 History
Prevention/Tx
escitalopram oxalate 10 mg tablet 10 mg PO DAILY depression 08/02/23 10/08/23 History
hydrochlorothiazide 12.5 mg tablet 12.5 mg PO DAILY Blood Pressure 08/02/23 10/08/23 History
losartan 25 mg tablet 25 mg PO DAILY Blood Pressure 08/02/23 10/08/23 History
carvedilol 25 mg tablet (Coreg) 25 mg PO BID Blood Pressure 09/13/23 10/08/23 History
acetaminophen 500 mg tablet 500 mg PO Q4HPRN PRN mild pain 10/08/23 10/08/23 History
(Tylenol Extra Strength)
budesonide 0.5 mg/2 mL suspension 0.5 mg inhalation R DAILY 10/08/23 10/08/23 History
for nebulization Lung/Breathing Issues
cholecalciferol (vitamin D3) 1 tab PO HS Supplement 10/08/23 10/08/23 History
collagen 1 dose PO DAILY Supplement 10/08/23 10/08/23 History
esomeprazole magnesium 40 mg 40 mg PO DAILY Gastrointestinal 10/08/23 10/08/23 History
capsule,delayed release Issue
ipratropium 0.5 mg-albuterol 3 mg 3 ml inhalation R DAILY 10/08/23 10/08/23 History
(2.5 mg base)/3 mL nebulization Lung/Breathing Issues
soln
ilnakkwxubmm-qngrhzic-geqxvo tablet 1 tab PO DAILY Supplement 10/08/23 10/08/23 History
Review of Systems
-
No chest pain or shortness of breath currently. The remainder of the complete review of systems was negative
Physical Exam
Vital Signs
Vital Signs
Temp Pulse Resp BP Pulse Ox
97.4 F 70 18 176/99 98
10/11/23 07:00 10/11/23 08:30 10/11/23 08:06 10/11/23 08:30 10/11/23 08:06
Lab Results
WBC 9.8 10^3/uL (4.8-10.8) 10/11/23 05:30
RBC 3.33 10^6/uL (4.20-5.40) L 10/11/23 05:30
Hgb 9.9 g/dL (12.0-16.0) L 10/11/23 05:30
Hct 29.9 % (37.0-47.0) L 10/11/23 05:30
Plt Count 342 10^3/uL (130-400) 10/11/23 05:30
Sodium 127 mmol/L (135-145) L 10/11/23 05:30
Potassium 4.8 mmol/L (3.5-5.1) 10/11/23 05:30
Chloride 91 mmol/L (98-107) L 10/11/23 05:30
Carbon Dioxide 33 mmol/L (22-30) H 10/11/23 05:30
BUN 24 mg/dl (7-17) H 10/11/23 05:30
Creatinine 0.7 mg/dL (0.6-1.0) 10/11/23 05:30
eGFR > 60.00 10/11/23 05:30
Glucose 134 mg/dl (70-99) H 10/11/23 05:30
Calcium 9.1 mg/dl (8.4-10.2) 10/11/23 05:30
Phosphorus 4.2 mg/dl (2.5-4.5) 10/08/23 17:04
Hau-M-Kbkflzrmbvk Pept 1310 pg/ml 10/08/23 09:40
Albumin 3.2 g/dl (3.5-5.0) L 10/11/23 05:30
Physical Exam
General: AOx3
HEENT: PERRL, EOMI, Ear/Nose Intact, Hearing Normal, Oropharynx Clear/Moist, Neck Supple, Trachea Midline and No Thyromegaly
Respiratory: Clear
Cardiac: Regular Rate/Rhythm
Abdomen: Soft, Nontender, Normal Bowel Sounds and No Hepatosplenomegaly
Skin: No Rash and Normal Turgor
Psych: Mood/afflect pleasant and Insight/judgement good
Assessment/Plan
-
Assessment:
Acute asthmatic bronchitis-possible tracheobronchitis.
Restrictive lung disease likely due to body habitus.
Chronic bronchitis-started on nebulizer therapy budesonide/DuoNebs only once a day 08/2023.
acute on chronic hyponatremia
HTN
hx PE
GERD
Plan
-samsca 15mg toay
-serial BMP
-no more HCTZ
-increase losartan as needed
-may benefit from lasix daily
Data Reviewed
-
Radiology: Image Personally Visualized and interpreted (Chest x-ray on 10/08/2023 by my reading shows hiatal hernia, left-sided atelectasis.)
Medical Tests (Nuc Med, Echo etc): Image Personally Visualized and interpreted (EKG on 10/08/2023 by my reading shows normal sinus rhythm nonspecific ST-T wave abnormalities)
Labs: Labs Reviewed by me
Old Records: Reviewed
--- NOTE | 2023-10-11 13:52 | W.PN.HOSP.TC ---
Today's Communication/Plan
-
continue IV steroids
continue IV Abx
renal c/s for HypoNa
Assessment / Plan
Assessment / Plan
Assessment:
Acute hypoxic respiratory failure
- on 2L, wean as able
Acute asthmatic bronchitis-possible tracheobronchitis.
Restrictive lung disease likely due to body habitus.
Chronic bronchitis-started on nebulizer therapy budesonide/DuoNebs only once a day 08/2023.
Former smoker quit in 1982.� 62-jcpw-spqx history.
- CT chest 10/08/2023: Reviewed, showed no evidence for pulmonary embolism or aortic dissection.� Left upper lobe and medial inferior left lower lobe consolidation versus atelectasis. Moderate size posterior hiatal hernia.
- pulmonary following
- continue Decadron, day 4
- continue Rocephin/Azithromycin, day 4
- continue Budesonide/DuoNeb
- speech therapy
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
- Na 127
- renal c/s to discuss Samsca
- continue OFR
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
- PT/OT - VN to be arranged
- continue on Eliquis 2.5mg BID
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 Ernst from hematology and also with Dr. Patterson from pulmonary
- continue on Eliquis 2.5mg BID - dose as per OP Hematology
Obesity
GERD
- continue PPI daily
Essential hypertension
- continue Losartan/Coreg
Hypothyroidism - continue LT4
Anxiety
DVT ppx: Eliquis
Code: Full
Anticipated Discharge: 24 - 48 hours
Subjective/Interval History
-
Date of Service: October 11, 2023
denies any complaints, reports some improvement in breathing today
Na 127
Objective Data
-
Labs:
Laboratory Results
10/11/23
05:30
WBC 9.8
Hgb 9.9 L
Hct 29.9 L
Plt Count 342
Sodium 127 L
Potassium 4.8
Chloride 91 L
Carbon Dioxide 33 H
BUN 24 H
Creatinine 0.7
Glucose 134 H
Calcium 9.1
Total Bilirubin 0.3
AST 19
ALT 16
Alkaline Phosphatase 79
Vital Signs:
Vital Signs
Temp Pulse Resp BP Pulse Ox
97.4 F 70 18 176/99 98
10/11/23 07:00 10/11/23 08:30 10/11/23 08:06 10/11/23 08:30 10/11/23 08:06
I&O
10/10/23 10/11/23 10/12/23
06:59 06:59 06:59
Intake Total 720 / 720 600 / 600
Balance 720 / 720 600 / 600
Physical Exam
-
General: No Apparent Distress
HEENT: Normocephalic and Atraumatic
Respiratory: Decreased Breath Sounds; Negative Wheezes or Rales
Cardiac: Regular Rhythm and S1/S2
GI: Soft
Genito-urinary: No Costovertebral Tender
Musculoskeletal: No Edema
Neuro: AO x 3
Hematologic / Lymphatic: No Lymphadenopathy
Psych: Calm
Data Reviewed
-
Total Time Spent with Patient (in minutes): 45
Labs: Labs Reviewed by me
[2023-10-11] MEDS: STERILE WATER FOR INJECTION 10 ML IV (14:10)
[2023-10-11] MEDS: SAMSCA 15 MG PO (14:10)
[2023-10-11] MEDS: ROCEPHIN 1000 MG IV (14:11)
[2023-10-11] MEDS: FLUSH (NSS) 4 FLUSH IV (14:13)
[2023-10-11 15:00] VITALS: BP 181/77
[2023-10-11] MEDS: OCEAN, SALINE MIST 2 SPRAYS NASAL ×2 (15:01→21:33)
[2023-10-11] MEDS: ZITHROMAX 500 MG PO (15:01)
--- NOTE | 2023-10-11 15:10 | W.PN.PUL3 ---
Today's Communication / Plan
-
Transition to prednisone
Continue nebulized therapy
Increase activity as able
For discharge planning for tomorrow
Outpatient pulmonary follow-up with Dr. Patterson.
Assessment
-
Acute asthmatic bronchitis-possible tracheobronchitis.
CT chest 10/08/2023: Reviewed, showed no evidence for pulmonary embolism or aortic dissection. Left upper lobe and medial inferior left lower lobe consolidation versus atelectasis. Moderate size posterior hiatal hernia.
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
Hyponatremia
Conditions present prior to admission:
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 Ernst from hematology and also with Dr. Patterson from pulmonary
Restrictive lung disease likely due to body habitus.
Chronic bronchitis-started on nebulizer therapy budesonide/DuoNebs only once a day 08/2023.
Former smoker quit in 1982. 10-gkpr-nlgz history.
Obesity
GERD
Hypertension
Hypothyroid
Anxiety
Mild restrictive lung disease
Former sqalmz-99-xrof-year smoker-quit 35 years ago
PFT 10/21/13-FEV1 1.47 L (72%), FVC 73%, TLC 76%, DLCO 79%
Foot surgery
Specifically no history of CAD/COPD/asthma/DVT/previous pulmonary embolism/hypercoagulable state/miscarriages
-
Plan and recommendations:
-
Slowly improving.
Cough and congestion slowly clearing.
Bronchospasm improved 10/11/2023.
Ambulating with assistance to the restroom, less short of breath
Oxygen has been weaned off.
-
Patient does have chronic cough and bronchitis on nebulizer therapy in the outpatient setting.
No significant airflow obstruction on spirometry.
Quit smoking long time ago.
-
Discontinued dexamethasone and transition to prednisone 40 mg(10/11/2023) and decrease by 10 mg every 48 hours to off.
Will need to monitor blood sugars while on high-dose of steroids.
Cont. antibiotics ceftriaxone/Zithromax (transitioned to PO) given CT scan findings. Transition to oral antibiotics upon discharge Ceftin/azithromycin and complete total of 7 days.
Aspiration precaution
Incentive spirometry
Increase activity as able
Continue DuoNebs and Pulmicort- (takes in outpx per [facility] notes, pt not using consistently)- Upon DC should continue BID.
Sputum culture if able.- has not been able to produce.
-
GERD and aspiration precautions.
-
DVT prophylaxis: On anticoagulation.
-
Obstructive sleep apnea may be a possibility as well. Should be addressed in the outpatient setting.
Perhaps worsened by narcotics given for chronic pain as well as gabapentin.
Patient reports waking up suddenly at 4 AM in the morning.
-
Discussed with Dr. Meyer plan to discharge tomorrow 10/12/2023 if continues to improve.
-
Will need short-term follow-up with Dr. Patterson after discharge.
Subjective Data
-
Date of Service:
Date of Service: October 11, 2023
Chief Complaint: Pulmonary Follow Up (Acute respiratory insuff. Asthmatic bronchitis.)
Subjective:
Overall from a pulmonary perspective starting to feel better
Less coughing
Less chest congestion
Ambulating to the restroom with assistance
Review of Systems
General: Fever (n)
Cardiopulmonary: Dyspnea (improved), Cough (improved) and Wheezing (improved)
Objective Data
Data Reviewed
Vital Signs / I&O / Oxygen:
Vital Signs
Temp Pulse Resp BP Pulse Ox
97.4 F 70 18 176/99 98
10/11/23 07:00 10/11/23 08:30 10/11/23 08:06 10/11/23 08:30 10/11/23 08:06
Intake and Output
10/10/23 10/11/2310/11/24
06:59 06:59 06:59
Intake Total 720 / 720 600 / 600
Balance 720 / 720 600 / 600
SaO2 98
Nasal Cannula flow liters per 2
minute
Physical Exam
General: Respiratory Distress (n) and Comfortable
HEENT: Normocephalic
Respiratory: Wheeze
GI: Soft and Non Distended
Neurology: Awake
Skin: Warm
Labs/Micro/Reports
Lab Data
10/11/23 05:30
10/11/23 05:30
Microbiology
10/08/23 10:02 Blood/Venous Blood Culture - Preliminary
No Growth in 72 hours- Final report to follow
10/08/23 09:39 Blood/Venous Blood Culture - Preliminary
No Growth in 72 hours- Final report to follow
10/08/23 09:40 Nasal Swab Influenza Types A & B (SON) - Final
Negative for Influenza A & B, NAAT
Negative results must be combined with clinical observations
and patient history.
Nucleic Acid Amplification test (NAAT)performed on the
[employer] platform.
--- NOTE | 2023-10-11 16:07 | VNURNOTE ---
[facility] resumption of care completed in [facility] after review of chart.
[2023-10-11] MEDS: APRESOLINE 5 MG IV ×2 (17:06→23:51)
[2023-10-11] MEDS: VITAMIN B1 100 MG PO (19:57)
[2023-10-11] MEDS: LIPITOR 10 MG PO (21:34)
[2023-10-11] MEDS: MELATONIN 5 MG PO (21:34)
[2023-10-11 23:47] VITALS: BP 161/84
[2023-10-12] MEDS: DUONEB 3 ML INH ×3 (00:54→11:33)
[2023-10-12] MEDS: ANESTHETIC LOZENGE 1 LOZENGE PO (00:58)
[2023-10-12] MEDS: SYNTHROID 75 MCG PO (06:07)
[2023-10-12 06:38] LABS: Blood Urea Nitrogen 27 mg/dl (7-17); Calcium 9.6 mg/dl (8.4-10.2); Chloride 93 mmol/L (98-107); Estimated Creatinine Clearance 59 ml/min; Glucose 127 mg/dl (70-99); Potassium 4.4 mmol/L (3.5-5.1); Sodium 134 mmol/L (135-145); eGFR > 60.00
[2023-10-12 06:46] LABS: Carbon Dioxide 33 mmol/L (22-30)
[2023-10-12 07:00] VITALS: BP 184/91
[2023-10-12] MEDS: VITAMIN B1 100 MG PO (07:52)
[2023-10-12] MEDS: COZAAR 50 MG PO ×2 (07:52→10:26)
[2023-10-12] MEDS: FOLVITE 1 MG PO (07:52)
[2023-10-12] MEDS: PROTONIX 40 MG PO (07:52)
[2023-10-12] MEDS: LEXAPRO 10 MG PO (07:52)
[2023-10-12] MEDS: THERAGRAN 1 TABLET PO (07:52)
[2023-10-12] MEDS: DELTASONE 40 MG PO (07:52)
[2023-10-12] MEDS: ZOVIRAX OINTMENT 5% 1 APPLIC TOPICAL ×2 (07:53→10:27)
[2023-10-12] MEDS: PULMICORT 0.5 MG INH (07:53)
[2023-10-12] MEDS: COREG 25 MG PO (07:53)
[2023-10-12] MEDS: ELIQUIS 2.5 MG PO (07:53)
[2023-10-12 11:33] VITALS: BP 139/61
--- NOTE | 2023-10-12 11:38 | W.PN.HOSP.TC ---
Today's Communication/Plan
-
dc home vn
Assessment / Plan
Assessment / Plan
Assessment:
Acute hypoxic respiratory failure
- on 2L, wean as able
Acute asthmatic bronchitis-possible tracheobronchitis.
Restrictive lung disease likely due to body habitus.
Chronic bronchitis-started on nebulizer therapy budesonide/DuoNebs only once a day 08/2023.
Former smoker quit in 1982.� 04-[id number]-wpdr history.
- CT chest 10/08/2023: Reviewed, showed no evidence for pulmonary embolism or aortic dissection.� Left upper lobe and medial inferior left lower lobe consolidation versus atelectasis. Moderate size posterior hiatal hernia.
- pulmonary following
- transition to Prednisone 40mg wean by 10mg q48h
- continue Rocephin/Azithromycin, day 12/16
- continue Budesonide/DuoNeb
- speech therapy
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
- Na 127 now 134 s/p 1 dose Samsca
- continue OFR
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
- PT/OT - VN to be arranged
- continue on Eliquis 2.5mg BID
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 Ernst from hematology and also with Dr. Patterson from pulmonary
- continue on Eliquis 2.5mg BID - dose as per OP Hematology
Obesity
GERD
- continue PPI daily
Essential hypertension
- continue Losartan/Coreg
Hypothyroidism - continue LT4
Anxiety
DVT ppx: Eliquis
Code: Full
More than 30 minutes spent in discharge including
Final examination of the patient
Summarizing hospital stay
Instructions for continuing care to all relevant caregivers
Preparation of discharge records, prescriptions, and referral forms
Total time spent (in minutes): 45
Anticipated Discharge: Today
Subjective/Interval History
-
Date of Service: October 12, 2023
denies any new complaints
Objective Data
-
Labs:
Laboratory Results
10/12/23
05:39
Sodium 134 L
Potassium 4.4
Chloride 93 L
Carbon Dioxide 33 H
BUN 27 H
Creatinine 0.7
Glucose 127 H
Calcium 9.6
Vital Signs:
Vital Signs
Temp Pulse Resp BP Pulse Ox
97.8 F 83 16 139/61 94
10/12/23 07:00 10/12/23 11:35 10/12/23 11:35 10/12/23 11:33 10/12/23 11:35
I&O
10/11/23 10/12/23 10/13/23
06:59 06:59 06:59
Intake Total 600 / 600 960 / 960
Balance 600 / 600 960 / 960
Physical Exam
-
General: No Apparent Distress
HEENT: Normocephalic and Atraumatic
Respiratory: Wheezes (slight); Negative Rales
Cardiac: Regular Rhythm and S1/S2
GI: Soft and Nontender
Genito-urinary: No Costovertebral Tender
Musculoskeletal: No Edema
Neuro: AO x 3
Hematologic / Lymphatic: No Lymphadenopathy
Psych: Calm
Data Reviewed
-
Total Time Spent with Patient (in minutes): 45
Labs: Labs Reviewed by me
--- NOTE | 2023-10-12 11:39 | W.PN.NEPH.PH ---
Today's Communication / Plan
-
dc planning
Assessment/Plan
-
Assessment:
Acute asthmatic bronchitis-possible tracheobronchitis.
Restrictive lung disease likely due to body habitus.
Chronic bronchitis-started on nebulizer therapy budesonide/DuoNebs only once a day 08/2023.
acute on chronic hyponatremia
HTN
hx PE
GERD
Plan
-serial BMP
-no more HCTZ
-increase losartan
-no lasix for now
-
-
Date of Service: October 12, 2023
CC / HPI / ROS
-
Chief Complaint:
hyponatremia
History of Present Illness:
Na up to 134 with samsca
BP high off HCTZ
breathing improved
Review of Systems:
no CP/SOB
Labs
-
Labs:
WBC 9.8 10^3/uL (4.8-10.8) 10/11/23 05:30
RBC 3.33 10^6/uL (4.20-5.40) L 10/11/23 05:30
Hgb 9.9 g/dL (12.0-16.0) L 10/11/23 05:30
Hct 29.9 % (37.0-47.0) L 10/11/23 05:30
Plt Count 342 10^3/uL (130-400) 10/11/23 05:30
Sodium 134 mmol/L (135-145) L 10/12/23 05:39
Potassium 4.4 mmol/L (3.5-5.1) 10/12/23 05:39
Chloride 93 mmol/L (98-107) L 10/12/23 05:39
Carbon Dioxide 33 mmol/L (22-30) H 10/12/23 05:39
BUN 27 mg/dl (7-17) H 10/12/23 05:39
Creatinine 0.7 mg/dL (0.6-1.0) 10/12/23 05:39
eGFR > 60.00 10/12/23 05:39
Glucose 127 mg/dl (70-99) H 10/12/23 05:39
Calcium 9.6 mg/dl (8.4-10.2) 10/12/23 05:39
Phosphorus 4.2 mg/dl (2.5-4.5) 10/08/23 17:04
Mpv-Z-Sqmnedindnu Pept 1310 pg/ml 10/08/23 09:40
Albumin 3.2 g/dl (3.5-5.0) L 10/11/23 05:30
Physical Exam
-
Vital Signs:
Vital Signs
Temp Pulse Resp BP Pulse Ox
97.8 F 83 16 139/61 94
10/12/23 07:00 10/12/23 11:35 10/12/23 11:35 10/12/23 11:33 10/12/23 11:35
Cardiovascular:: Regular rate and rhythm
Respiratory:: Bilateral: Coarse
Lung Excursion:: Normal
Abdomen:: Nontender and Soft
Bowel Sounds:: Normal
Extremity Edema:: None: Bilateral:
--- NOTE | 2023-10-12 11:54 | W.DS.TRANS ---
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
-
Discharge Instructions:
Discharge Diagnosis/Procedures Asthmatic bronchitis (hypoxia as well which is
resolved), low sodium, elevated BP
Diet Low Cholesterol
Activity As tolerated
Bathing Restrictions None
Other Services VN
Stop these medications: Hydrochlorothiazine
Instructions:
Stand-Alone Forms:
Changes to Home Medications: Yes
Discharge Medications:
DC Medications w/original date entered in [facility]
levothyroxine 75 mcg tablet 75 mcg PO DAILY Thyroid 05/03/19
simvastatin 20 mg tablet 20 mg PO HS High cholesterol 12/15/19
apixaban 2.5 mg tablet (Eliquis) 2.5 mg PO BID Blood Clot Prevention/Tx 08/02/23
escitalopram oxalate 10 mg tablet 10 mg PO DAILY depression 08/02/23
carvedilol 25 mg tablet (Coreg) 25 mg PO BID Blood Pressure 09/13/23
cholecalciferol (vitamin D3) 1 tab PO HS Supplement 10/08/23
collagen 1 dose PO DAILY Supplement 10/08/23
esomeprazole magnesium 40 mg capsule,delayed release 40 mg PO DAILY Gastrointestinal Issue 10/08/23
tvweantsrspp-azomtrmz-fvpfkk tablet 1 tab PO DAILY Supplement 10/08/23
azithromycin 250 mg tablet 250 mg PO DAILY@1600 #3 tabs 10/12/23
budesonide 0.5 mg/2 mL suspension for nebulization 0.5 mg (2 mL) inhalation BID Lung/Breathing Issues #60 mL 10/12/23
cefdinir 300 mg capsule 300 mg PO BID #6 caps 10/12/23
ipratropium 0.5 mg-albuterol 3 mg (2.5 mg base)/3 mL nebulization soln 3 ml inhalation R BID Lung/Breathing Issues #0 mL 10/12/23
ipratropium 0.5 mg-albuterol 3 mg (2.5 mg base)/3 mL nebulization soln 3 ml inhalation R Q4HPRN PRN shortness of breath #90 mL 10/12/23
losartan 100 mg tablet 100 mg PO DAILY #30 tabs 10/12/23
prednisone 10 mg tablet 10 mg PO DIRECTED #20 tabs 10/12/23
Home Medication Changes
Losartan increased, HCTZ stopped for hyponatremia
Pending Results: No
Total time spent discharging patient (in min): 45
--- NOTE | 2023-10-12 12:25 | CM ---
Chart reviewed. Spoke with pt at bedside
For d/c today
Has ride home
Discussed IMM
Plan - home with VN
--- NOTE | 2023-10-12 13:00 | W.PN.PUL3 ---
Today's Communication / Plan
-
Continue prednisone with taper
Continue nebulized therapy
Increase activity as able
For discharge planning today
Outpatient pulmonary follow-up with Dr. Patterson
Patient being discharged home today. Pulmonary service will now sign off. Please reconsult if there are any additional questions/concerns.
Assessment
-
Acute asthmatic bronchitis-possible tracheobronchitis.
CT chest 10/08/2023: Reviewed, showed no evidence for pulmonary embolism or aortic dissection. Left upper lobe and medial inferior left lower lobe consolidation versus atelectasis. Moderate size posterior hiatal hernia.
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
Hyponatremia
Conditions present prior to admission:
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 Ernst from hematology and also with Dr. Patterson from pulmonary
Restrictive lung disease likely due to body habitus.
Chronic bronchitis-started on nebulizer therapy budesonide/DuoNebs only once a day 08/2023.
Former smoker quit in 1982. 90-boaf-gsyn history.
Obesity
GERD
Hypertension
Hypothyroid
Anxiety
Mild restrictive lung disease
Former aoxvbh-63-wayx-year smoker-quit 35 years ago
PFT 10/21/13-FEV1 1.47 L (72%), FVC 73%, TLC 76%, DLCO 79%
Foot surgery
Specifically no history of CAD/COPD/asthma/DVT/previous pulmonary embolism/hypercoagulable state/miscarriages
-
Plan and recommendations:
-
Continuing to improve - awaiting discharge
Cough and congestion slowly clearing.
Bronchospasm improved 10/11/2023.
Ambulating with assistance to the restroom, less short of breath
Oxygen has been weaned off.
-
Patient does have chronic cough and bronchitis on nebulizer therapy in the outpatient setting.
No significant airflow obstruction on spirometry.
Quit smoking long time ago.
-
Discontinued dexamethasone and transition to prednisone 40 mg(10/11/2023) and decrease by 10 mg every 48 hours to off.
Will need to monitor blood sugars while on high-dose of steroids.
Cont. antibiotics ceftriaxone/Zithromax (transitioned to PO) given CT scan findings. Transition to oral antibiotics upon discharge Ceftin/azithromycin and complete total of 7 days.
Aspiration precaution
Incentive spirometry
Increase activity as able
Continue DuoNebs and Pulmicort- (takes in outpx per ECW notes, pt not using consistently)- Upon DC should continue BID.
Sputum culture if able.- has not been able to produce.
-
GERD and aspiration precautions.
-
DVT prophylaxis: On anticoagulation.
-
Obstructive sleep apnea may be a possibility as well. Should be addressed in the outpatient setting.
Perhaps worsened by narcotics given for chronic pain as well as gabapentin.
Patient reports waking up suddenly at 4 AM in the morning.
-
Discussed with Dr. Meyer plan to discharge tomorrow 10/12/2023 if continues to improve.
-
Will need short-term follow-up with Dr. Patterson after discharge -this will be arranged for the patient.
Patient being discharged home today. Pulmonary service will now sign off. Thank you for allowing us to be involved in the care of this patient. Please reconsult if there are any additional questions/concerns.
Subjective Data
-
Date of Service:
Date of Service: October 12, 2023
Chief Complaint: Pulmonary Follow Up (Acute respiratory insuff. Asthmatic bronchitis.)
Subjective:
Patient seen and evaluated today at bedside. She is doing well, awaiting discharge home. Currently on room air saturating 95%. Denies chest pain, headache, fevers or chills.
Review of Systems
General: Other (Negative unless mentioned above)
Objective Data
Data Reviewed
Vital Signs / I&O / Oxygen:
Vital Signs
Temp Pulse Resp BP Pulse Ox
97.8 F 83 16 139/61 94
10/12/23 07:00 10/12/23 11:35 10/12/23 11:35 10/12/23 11:33 10/12/23 11:35
Intake and Output
10/11/23 10/12/23 10/13/23
06:59 06:59 06:59
Intake Total 600 / 600 960 / 960
Balance 600 / 600 960 / 960
SaO2 94
Nasal Cannula flow liters per 2
minute
Physical Exam
General: Respiratory Distress (n) and Comfortable
HEENT: Normocephalic and Anicteric
Cardiovascular: S1-S2 and Peripheral Edema (Negative)
Respiratory: Wheeze (Faint), Crackles (Negative) and Non-Labored Respirations
GI: Soft and Non Distended
Neurology: Awake and Alert
Skin: Warm and Dry
Labs/Micro/Reports
Lab Data
10/11/23 05:30
10/12/23 05:39
Microbiology
10/08/23 10:02 Blood/Venous Blood Culture - Preliminary
No Growth in 4 days- Final report to follow
10/08/23 09:39 Blood/Venous Blood Culture - Preliminary
No Growth in 4 days- Final report to follow
[2023-10-12] MEDS: ROCEPHIN 1000 MG IV (13:16)
[2023-10-12] MEDS: STERILE WATER FOR INJECTION 10 ML IV (13:17)
== END 2023-10-12 15:31 | disposition home health service (06) | DRG 643 ==
LOC: 3 WEST ACU 14:12
PROVIDERS: Clinical Nurse Specialist Family Health; ADMITTING PHYSICIAN Internal Medicine; ATTENDING PHYSICIAN Internal Medicine; CONSULT PHYSICIAN Internal Medicine Critical Care Medicine; CONSULT PHYSICIAN Specialist; EMERGENCY PHYSICIAN Emergency Medicine; FAMILY PHYSICIAN Internal Medicine
DX: E22.2 Syndrome of inappropriate secretion of antidiuretic hormone (principal); J96.01 Acute respiratory failure with hypoxia; J45.902 Unspecified asthma with status asthmaticus; J98.11 Atelectasis; I10 Essential (primary) hypertension; E66.9 Obesity, unspecified; E03.9 Hypothyroidism, unspecified; K21.9 Gastro-esophageal reflux disease without esophagitis; F41.9 Anxiety disorder, unspecified; J20.9 Acute bronchitis, unspecified; Z96.652 Presence of left artificial knee joint; Z79.01 Long term (current) use of anticoagulants; Z68.29 Body mass index [BMI] 29.0-29.9, adult; Z86.711 Personal history of pulmonary embolism; Z87.891 Personal history of nicotine dependence
CPT/HCPCS: 71045; 71275; 80048; 80053; 80306; 80307; 81003; 82010; 82077; 82607; 82728; 82746; 82977; 83540; 83550; 83605; 83735; 83880; 83930; 83935; 84100; 84300; 84439; 84443; 84484; 85025; 85610; 85730; 87040; 87502; 87811; 92526; 92610; 93005; 94640; 97110; 97162; 97165; 97530; 99285; Q9967

== ENCOUNTER 2023-12-15 15:50 | Inpatient (IN) | payer OTHER, SELFPAY ==
[2023-12-15 12:44] VITALS: BP 128/65
[2023-12-15 13:10] VITALS: BMI 28.7
[2023-12-15 14:34] LABS: % Basophils 0.4 % (0-2); % Eosinophils 4.1 % (0-6); % Immature Granulocytes 0.3 % (0-0.5); % Monocytes 10.8 % (1.7-9.3); % Neutrophils 70.4 % (42.2-75.2); Absolute Eosinophils 0.4 10^3/uL (0-0.7); Absolute Lymphocytes 1.4 10^3/uL (1.2-3.4); Absolute Monocytes 1.1 10^3/uL (0.1-0.6); Absolute Neutrophils 7.3 10^3/uL (1.4-6.5); Hematocrit 35.1 % (37.0-47.0); Hemoglobin 11.5 g/dL (12.0-16.0); Mean Corp Hgb Conc. 32.8 g/dL (33.0-37.0); Mean Corpuscular Hgb 27.6 pg (27.0-31.0); Mean Corpuscular Volume 84.4 fL (81.0-99.0); Mean Platelet Volume 8.8 fL (7.4-10.4); Nucleated Red Blood Cells % 0 %; Platelet Count 336 10^3/uL (130-400); Red Blood Cell Count 4.16 10^6/uL (4.20-5.40); Red Cell Dist. Width 13.6 % (11.5-14.5); White Blood Cell Count 10.3 10^3/uL (4.8-10.8)
[2023-12-15 14:59] LABS: ALT (SGPT) 13 U/L (0-35); AST (SGOT) 22 U/L (14-36); Albumin 3.7 g/dl (3.5-5.0); Alkaline Phosphatase 115 U/L (38-126); Blood Urea Nitrogen 15 mg/dl (7-17); Calcium 9.5 mg/dl (8.4-10.2); Carbon Dioxide 29 mmol/L (22-30); Chloride 98 mmol/L (98-107); Estimated Creatinine Clearance 51 ml/min; Glucose 108 mg/dl (70-99); Potassium 4.9 mmol/L (3.5-5.1); Sodium 130 mmol/L (135-145); Total Bilirubin 0.7 mg/dl (0.2-1.3); Total Protein 6.1 g/dl (6.3-8.2); eGFR > 60.00
--- NOTE | 2023-12-15 15:12 | ED.GENMED ---
History of Present Illness
General
Chief Complaint: Rectal Bleeding
Source: patient
Exam Limitations: none
Time Seen by Provider: 12/15/23 14:01
Travel History
Have you had any contact with someone who has COVID-19?: No
Do you have any symptoms of coronavirus? Fever > 100 degrees, chills, cough, shortness of breath, sore throat, loss of taste or smell, muscle aches, or headache?: No
History of Present Illness
History of Present Illness:
This an 83-year-old female presents with rectal bleeding. Patient states she woke up this morning and noticed blood when she wiped. She then had cramping and proceeded to have bloody bowel movements. Patient does admit to a little bit of lower
abdominal cramping now but pain is better and at rest really not a significant amount of pain. Patient states that she is on Eliquis due to history of pulmonary embolism. She was hoping to be off of it but hematology/oncology has advised that she
stays on it for now. Patient denies vomiting. No fevers. Patient did not take her Eliquis this morning
Past History
Past History
ED Past Medical History: GERD, HTN, Hypercholesterolemia, Hypothyroidism and Other (Pulmonary embolism)
ED Past Surgical History: Orthopedic (Foot surgery)
Social History
Tobacco: Former smoker
Alcohol: Occasional
Drug: None
Living: with family
Employment: Retired
Family History
Family History: Other (Mother with cancer of the pancreas father with cancer of the lung)
Phy Exam
Physical Exam
Physical Exam:
CONSTITUTIONAL Patient alert and oriented to person, place and time. Well-appearing. Vital signs reviewed.
HEAD atraumatic, normocephalic.
EYES eyelids normal to inspection, Pupils equally round and reactive to light, Extraocular muscles intact, Conjunctiva normal, Sclera normal.
NECK normal range of motion, Trachea midline, no jugular venous distention.
RESPIRATORY CHEST No respiratory distress noted, Chest expansion equal, Bilateral breath sounds clear.
CARDIOVASCULAR regular rate and rhythm, Heart sounds normal.
ABDOMEN mild suprapubic tenderness, Bowel sounds normal. No distention.
Rectal external hemorrhoid noted but no bleeding. SUMMER shows small about of bright red blood
BACK normal inspection, no obvious deformities
UPPER EXTREMITY range of motion normal, Motor strength normal, no cyanosis, no edema.
LOWER EXTREMITY range of motion normal, Motor strength normal, no cyanosis, no edema.
NEURO Speech normal, No focal motor deficits, [place] coma scale 15, Memory normal, Cranial Nerves intact to screening exam.
SKIN skin warm, dry, and normal in color.
PSYCHIATRIC patient oriented to person place and time, Normal affect.
Course
Orders/Labs/Results
Orders:
Orders
12/15/23 14:23
Type+Screen Urgent
Complete Blood Count/With Diff Urgent
Comprehensive Metabolic Panel Urgent
Prothrombin Time Urgent
12/15/23 Dinner
Clear Liquid
At Your Request: Full Participation
12/15/23 15:25
Admit/Transfer Patient As Directed
Co-Sign Provider:
Level of Care: Inpatient admission
Assign to:: Medical/Surgical
Physician / Group: Dr Juarez
Diagnosis: GI bleed
Reason for Hospitalization: pte p/w rectal bleed
Expected length of stay greater than two midnights?: Yes
ELOS- Estimated Length of Stay in days: 2
I certify the patient meets the requirements for IP care: Yes
12/15/23 15:26
Code Status As Directed
Resuscitation Status: Full Code
12/15/23 15:37
Ipratropium/Albuterol Sulfate [Duoneb] 3 ml INH R Q4HPRN PRN
12/15/23 15:40
GASTROINTESTINAL CONSULT Routine
Consulting Provider: Jody Sweet
Was physician already notified: Yes
Reason for consult: GI bleed
12/15/23 16:00
Budesonide [Pulmicort] 0.5 mg INH R QID
Escitalopram Oxalate [Lexapro] 10 mg PO DAILY
Levothyroxine [Synthroid] 75 mcg PO DAILY
Multivitamin [Theragran] 1 tablet PO DAILY
12/15/23 17:25
H&H Q6H
12/15/23 18:00
Amlodipine [Norvasc] 5 mg PO QPM
12/15/23 18:02
Bisacodyl [Dulcolax] 10 mg RECTAL G97SSMG PRN
Docusate W/Senna [Senokot-S] 1 tablet PO BIDPRN PRN
Polyethylene Glycol Powder [Miralax] 17 grams PO DAILYPRN PRN
12/15/23 18:02
Activity As Directed
Activity Level: Out of Bed-Early Mobility
Pneumatic Compression Sleeves As Directed
Type: Knee high
Vital Signs As Directed
Frequency: Per unit guidelines
DX Deep Vein Thrombosis Video Routine
12/15/23 20:00
Carvedilol [Coreg] 25 mg PO BID
12/15/23 22:00
Atorvastatin [Lipitor] 10 mg PO HS
Cholecalciferol (Vitamin D3) [VITAMIN D3 (cholecalciferol)] 25 mcg PO HS
12/16/23 00:00
H&H Q6H
12/16/23 06:00
Basic Metabolic Panel IN AM
Complete Blood Count/No Diff IN AM
H&H Q6H
12/16/23 08:00
Losartan [Cozaar] 100 mg PO DAILY
Pantoprazole [Protonix] 40 mg PO DAILY
Abnormal Lab Results
12/15/23
14:23
RBC 4.16 L 10^6/uL
(4.20-5.40)
Hgb 11.5 L g/dL
(12.0-16.0)
Hct 35.1 L %
(37.0-47.0)
MCHC 32.8 L g/dL
(33.0-37.0)
Absolute Neuts (auto) 7.3 H 10^3/uL
(1.4-6.5)
Absolute Monos (auto) 1.1 H 10^3/uL
(0.1-0.6)
Lymphocytes % 14.0 L %
(20.5-51.1)
Monocytes % 10.8 H %
(1.7-9.3)
Sodium 130 L mmol/L
(135-145)
Glucose 108 H mg/dl
(70-99)
Total Protein 6.1 L g/dl
(6.3-8.2)
12/15/23 14:23
12/15/23 14:23
Vital Signs
Initial and Last Documented VS:
Initial Vital Signs
Temp Pulse Resp BP Pulse Ox
98.2 F 84 20 128/65 94
12/15/23 12:44 12/15/23 12:44 12/15/23 12:44 12/15/23 12:44 12/15/23 12:44
Last Documented Vital Signs
Temp Pulse Resp BP Pulse Ox
98.6 F 76 18 137/64 92
12/15/23 22:57 12/15/23 22:57 12/15/23 22:57 12/15/23 22:57 12/15/23 22:57
MDM/Problems Addressed
MDM/Problems Addressed:
Rectal bleeding, external hemorrhoid, therapeutic anticoagulation
*Pulse Oximetry
Patient hypoxic: no
*Dry Plasterer Interpretation
Rate: normal
Interpretation: normal
Rhythm: sinus
*Critical Care Note
Total Time (30-74mins, 75-104mins- exclusive of procedures): Not Applicable
Data Reviewed
Review of Other/Old Records Reveals: Other (Colonoscopy from 2015 reveals previous history of diverticulosis)
Source: patient
Further Testing Considered But Not Given:
Consider CT angiography but patient has had no rectal bleeding while here
Patient Management
Discussion with other providers: Hospitalist
Escalation/DeEscalation of care consider admission/obs:
83-year-old female with rectal bleeding on Eliquis. Did not take her Eliquis today. Stable. History of diverticulosis on previous colonoscopy
ED Attending Note
-
Portions of this chart may have been created with voice recognition software.� Occasional wrong word or��sound alike� substitutions may have occurred due to the inherent limitations of voice recognition software.
Discharge Plan
Departure
Patient Disposition: Admit
Date of Disposition: 12/15/23
Time of Disposition: 15:15
Admit to: Telemetry
Presentation/result/management discussed w/ accepting MD/DO: Hospitalist
Discharge Problem:
Bright red rectal bleeding
Interventions
Interventions:
*Risk Screen - Suicide Last Done: 12/15/23 12:47
*General Assessment Last Done: 12/15/23 12:45
*Neglect/Abuse Screening Last Done: 12/15/23 12:47
ED- Fall Risk Assessment Last Done: 12/15/23 17:46
*ED COVID-19 Vaccine History Last Done: 12/15/23 12:45
*Nursing Disposition Last Done: 12/15/23 17:45
CQ-Zvyrft-Jmxddqnoze Assessment Last Done: 12/15/23 13:11
ED- Pulmonary Assessment Last Done: 12/15/23 13:12
Discharge Date and Time
Discharge Date/Time: 12/15/23 17:57
--- NOTE | 2023-12-15 15:28 | HPS.HSE ---
Family Physician
-
Family Physician: Dilcia Forrest
Chief Complaint
-
Rectal bleed
History of Present Illness
Patient 83 years old female with past medical history of chronic bronchitis, restrictive lung disease, GERD, hypertension, hypothyroidism, anxiety, restrictive lung disease, submassive PE on chronic anticoagulation, COVID, chronic hyponatremia,
psoriasis, came into the hospital with rectal bleeding. Patient noted she had some rectal bleeding when she wiped herself this morning and that following that she had another episode of bright blood per rectum not associated with abdominal pain.
Denies weight loss. Denies fevers or chills. She does take anticoagulant in the form of Eliquis for her PE which was in 2019 but based on what she is telling me her hematology has recommended to continue anticoagulation since her D-dimer has been
somewhat elevated and her risk of thrombosis. She also had a recent knee surgery back in September of this year. She denies any chest pain or shortness of breath. She denies any use of NSAIDs or aspirin. She tells me she had colonoscopy about 7
to 8 years ago which as per her report there were unremarkable. Here in the ER, hemoglobin 11.5 and she was referred to hospitalist service for evaluation.
Medical History
Past Medical History
Past Medical History: Reports Other (Alcohol use/abuse HTN HLD hypothyroidism moderate/severe AR pulmonary HTN restrictive lung disease with chronic hypoxia tobacco abuse/ex-smoker GERD Saddle PE/DVT unprovoked 2019 post COVID December 2019 on
Eliquis, COVID 30 May 2020 OA obesity psoriasis)
Past Surgical History: Reports Other (Cataract extraction Left foot hammertoe repair Left total knee arthroplasty 08/09/2023 Left TKR 09/26/2023 Dr. uMir)
Social History
Tobacco: Former Smoker
Alcohol: Occasional
Drug: None
Family History
Family History: Not pertinent
Allergies / Home Medications
Allergies reflects when Allergies were last updated in [facility].
Home Medications with original date entered in [facility]
Allergy/Medication List:
Allergies
Allergy/AdvReac Type Severity Reaction Status Date / Time
codeine [Codeine] Allergy Itching, Verified 12/15/23 12:48
skin
crawling
Home Medications
levothyroxine 75 mcg tablet 75 mcg PO DAILY Thyroid 05/03/19
apixaban 2.5 mg tablet (Eliquis) 2.5 mg PO BID Blood Clot Prevention/Tx 08/02/23
escitalopram oxalate 10 mg tablet 10 mg PO DAILY depression 08/02/23
carvedilol 25 mg tablet (Coreg) 25 mg PO BID Blood Pressure 09/13/23
cholecalciferol (vitamin D3) 25 mcg (1,000 unit) tablet (Vitamin D3) 25 mcg PO HS Supplement ##0 10/08/23
collagen 1 dose PO DAILY Supplement 10/08/23
esomeprazole magnesium 40 mg capsule,delayed release 40 mg PO DAILY Gastrointestinal Issue 10/08/23
nyuegmnouddu-rchancky-sfgdur tablet 1 tab PO DAILY Supplement 10/08/23
ipratropium 0.5 mg-albuterol 3 mg (2.5 mg base)/3 mL nebulization soln 3 ml inhalation R Q4HPRN PRN shortness of breath #90 mL 10/12/23
losartan 100 mg tablet 100 mg PO DAILY #30 tabs 10/12/23
amlodipine 5 mg tablet 5 mg PO QPM 12/15/23
atorvastatin 10 mg tablet 10 mg PO HS 12/15/23
budesonide 0.5 mg/2 mL suspension for nebulization 0.5 mg inhalation R QID Lung/Breathing Issues 12/15/23
Review of Systems
-
A 12 point ROS was completed and negative except as noted: Yes
Physical Exam
Vital Signs
Vital Signs
Temp Pulse Resp BP Pulse Ox
98.2 F 84 20 128/65 92
12/15/23 12:44 12/15/23 12:44 12/15/23 12:44 12/15/23 12:44 12/15/23 15:07
Physical exam:
General: Acutely ill
HEENT: Normocephalic, Atraumatic and Moist Mucous Membranes
Respiratory: Clear to Auscultation; Negative Wheezes, Rales or Rhonchi
Cardiac: Regular Rhythm and S1/S2
GI: Soft, Nontender and Nondistended
Musculoskeletal: No Clubbing, No Cyanosis and No Edema
Neuro: Awake, Alert and Oriented
Psych: Calm
Physical Exam
General: Other
Laboratory Results
-
12/15/23 14:23
12/15/23 14:23
Laboratory Results
PT 14.0 Sec (11.4-14.6) 12/15/23 14:23
INR 1.10 12/15/23 14:23
Total Bilirubin 0.7 mg/dl (0.2-1.3) 12/15/23 14:23
AST 22 U/L (14-36) 12/15/23 14:23
ALT 13 U/L (0-35) 12/15/23 14:23
Alkaline Phosphatase 115 U/L (38-126) 12/15/23 14:23
Impression/Plan
-
IMPRESSION:
Patient 83 years old female with multiple comorbidities presented to the hospital with bright blood per rectum. Patient at increased risk morbidity mortality due to acute GI bleed and multiple comorbidities therefore she will need to be treated in
the hospital and monitor progress and all toxicity accordingly.
Impression:
Acute GI bleed
Rule out acute blood loss anemia
Hyponatremia
Conditions prior to presentation:
Alcohol use disorder
HTN
HLD
hypothyroidism
moderate/severe AR pulmonary HTN
restrictive lung disease with chronic hypoxia
tobacco abuse/ex-smoker
GERD
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
OA
obesity
psoriasis
PLAN:
Clear liquid diet
Monitor hemoglobin closely
Hold off on Eliquis
GI consult ([place] texted GI today)
No issues with alcohol withdrawal but if any signs will place MSA protocol
Continue her antihypertensive medications but place holding parameters
Continue her oral PPI
Continue her inhalers
Continue her at the present
SCDs for DVT prophylaxis
CODE STATUS full code
Total time spent on today's encounter was 75 minutes which included time spent in counseling the patient/family regarding diagnosis and treatment plan as listed above, goals of care, and symptom management. Case was discussed with nursing staff,
specialists, and care coordinators/case management. All labs and imaging personally reviewed by me. Remainder the time spent in detailed review of previous records, lab data, imaging, and other medical provider documentation.
[2023-12-15] MEDS: THERAGRAN 1 TABLET PO (17:07)
[2023-12-15] MEDS: LEXAPRO 10 MG PO (17:08)
[2023-12-15] MEDS: SYNTHROID 75 MCG PO (17:08)
[2023-12-15] MEDS: NORVASC 5 MG PO (17:08)
[2023-12-15 17:37] LABS: Hematocrit 34.7 % (37.0-47.0); Hemoglobin 11.5 g/dL (12.0-16.0)
[2023-12-15 18:11] VITALS: BMI 28.3
[2023-12-15 18:12] VITALS: BP 161/82
[2023-12-15] MEDS: DUONEB 3 ML INH (20:17)
[2023-12-15] MEDS: PULMICORT 0.5 MG INH (20:17)
[2023-12-15] MEDS: LIPITOR 10 MG PO (21:14)
[2023-12-15] MEDS: COREG 25 MG PO (21:14)
[2023-12-15] MEDS: VITAMIN D3 (cholecalciferol) 25 MCG PO (21:14)
[2023-12-15 22:57] VITALS: BP 137/64
[2023-12-16 03:21] LABS: Hematocrit 32.4 % (37.0-47.0); Hemoglobin 10.8 g/dL (12.0-16.0)
[2023-12-16 06:00] VITALS: BMI 28.3
[2023-12-16 07:30] VITALS: BP 151/68
[2023-12-16 07:35] LABS: Hematocrit 37.4 % (37.0-47.0); Mean Corp Hgb Conc. 32.1 g/dL (33.0-37.0); Mean Corpuscular Hgb 27.4 pg (27.0-31.0); Mean Corpuscular Volume 85.4 fL (81.0-99.0); Mean Platelet Volume 9.2 fL (7.4-10.4); Platelet Count 352 10^3/uL (130-400); Red Blood Cell Count 4.38 10^6/uL (4.20-5.40); Red Cell Dist. Width 13.7 % (11.5-14.5); White Blood Cell Count 8.2 10^3/uL (4.8-10.8)
[2023-12-16] MEDS: PULMICORT 0.5 MG INH ×2 (07:40→19:36)
[2023-12-16 07:58] LABS: Blood Urea Nitrogen 9 mg/dl (7-17); Calcium 10.2 mg/dl (8.4-10.2); Carbon Dioxide 26 mmol/L (22-30); Chloride 98 mmol/L (98-107); Estimated Creatinine Clearance 68 ml/min; Glucose 99 mg/dl (70-99); Potassium 4.7 mmol/L (3.5-5.1); Sodium 132 mmol/L (135-145); eGFR > 60.00
[2023-12-16] MEDS: COZAAR 100 MG PO (09:08)
[2023-12-16] MEDS: COREG 25 MG PO ×2 (09:08→20:43)
[2023-12-16] MEDS: PROTONIX 40 MG PO (09:08)
[2023-12-16] MEDS: LEXAPRO 10 MG PO (09:08)
[2023-12-16] MEDS: SYNTHROID 75 MCG PO (09:08)
[2023-12-16] MEDS: THERAGRAN 1 TABLET PO (09:08)
--- NOTE | 2023-12-16 09:10 | W.PN.HOSP.TC ---
Today's Communication/Plan
-
Advance diet. Restart Eliquis. Monitor hemoglobin
Assessment / Plan
Assessment / Plan
Physical exam:
General: Acutely ill
HEENT: Normocephalic, Atraumatic and Moist Mucous Membranes
Respiratory: Clear to Auscultation; Negative Wheezes, Rales or Rhonchi
Cardiac: Regular Rhythm and S1/S2
GI: Soft, Nontender and Nondistended
Musculoskeletal: No Clubbing, No Cyanosis and No Edema
Neuro: Awake, Alert and Oriented
Psych: Calm
A/P:
Impression:
Acute GI bleed
Rule out acute blood loss anemia
Hyponatremia
Conditions prior to presentation:
Alcohol use disorder
HTN
HLD
hypothyroidism
moderate/severe AR pulmonary HTN
restrictive lung disease with chronic hypoxia
tobacco abuse/ex-smoker
GERD
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
OA
obesity
psoriasis
PLAN:
Clear liquid diet and advance as tolerated today to low residue diet
Monitor hemoglobin
GI consult appreciated
GI okay to resume Eliquis today
No issues with alcohol withdrawal but if any signs will place MSA protocol
Continue her antihypertensive medications but place holding parameters
Continue her oral PPI
Continue her inhalers
SCDs for DVT prophylaxis
CODE STATUS full code
Anticipated Discharge: Within 24 hours
Subjective/Interval History
-
Date of Service: December 16, 2023
Patient denies any further rectal bleeding. Denies abdominal pain nausea or vomiting.
Objective Data
-
Labs:
Laboratory Results
12/16/23 12/16/23
03:14 06:43
WBC 8.2
Hgb 10.8 L 12.0
Hct 32.4 L 37.4
Plt Count 352
Sodium 132 L
Potassium 4.7
Chloride 98
Carbon Dioxide 26
BUN 9
Creatinine 0.6
Glucose 99
Calcium 10.2
Vital Signs:
Vital Signs
Temp Pulse Resp BP Pulse Ox
97.8 F 78 16 151/68 95
12/16/23 07:30 12/16/23 07:45 12/16/23 07:45 12/16/23 07:30 12/16/23 07:45
Review of Systems
-
All other systems: Reviewed and negative
--- NOTE | 2023-12-16 10:39 | CON.GI ---
Addendum entered and electronically signed by Jody Sweet MD 12/16/23 15:54:
I saw and examined the patient.
The INDEPENDENT CONTRACTOR or PA's note was reviewed and I agree with the note.
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 Her hemoglobin here has
been stable and currently 12 up from 10.8 earlier. She has had no further rectal bleeding since being here. She estimates she had about a couple of rectal bleeding. Denies dizziness, chest pain, shortness of breath, abdominal pain, change in
bowel habits, pencil thin stools, weight loss. Blood was mixed in her stool. Last colonoscopy 2014 Dr. Cordero with hyperplastic polyps, hemorrhoids, diverticulosis.
Most likely suspect she either had hemorrhoidal bleeding versus self-limited diverticular bleeding.
At this time, we will restart her Eliquis tonight. If in the morning, she has no further bloody bowel movements and her hemoglobin remained stable, okay to be discharged from GI point of view in the morning. I have sent a message to my office to
schedule her for an outpatient colonoscopy. I discussed with the patient risk, alternatives, benefits of colonoscopy including but not limited to risk of bleeding, infection, perforation, missed lesion, risk of anesthesia. However, given the fact
that her last colonoscopy was 9 years ago I think it is prudent to repeat her colonoscopy at this time. Prior to the colonoscopy, we will sure from hematology and pulmonology we are able to hold the Eliquis for 2 days and that she is optimized from
their standpoint. I recommend that she takes her inhalers prior to the test. My office will reach out to her about scheduling the colonoscopy.
If she has ongoing rectal bleeding overnight, she will need inpatient colonoscopy versus CTA if extensive bleeding.
Addendum entered and electronically signed by Amanda Castillo NP 12/16/23 12:16:
Spoke with Dr. Sweet, who recommends resuming Eliquis today and monitoring for recurrent bleeding overnight. Repeat H&H in the morning. Dr. Juarez made aware. If stable with no recurrent bleeding or drop of hemoglobin in the a.m. can discharge
from GI standpoint.
Original Note:
Consultation
-
Date/Time Consultation Requested: 12/15/23 @ 15:40
Date/Time Consultation Performed: 12/16/23 @ 10:45
Requesting Provider: Dr. Juarez
Performing Provider: ANA Palma; Dr. Karen Sweet
Reason for Consultation: GI bleed
Medical History
Chief Complaint / HPI
Chief Complaint: rectal bleeding
History of Present Illness:
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
restrictive lung disease, GERD, hypertension, hypothyroidism, anxiety, psoriasis, who presents to the emergency room with complaints of rectal bleeding, which we are being asked to evaluate for. The patient reports that yesterday she had woken up in
the morning to have a bowel movement, and upon wiping she noticed bright red blood on the toilet paper. She notes that she had subsequent bowel movements with more blood although she is unable to quantify how much but notes that it appeared the
color of ketchup. She was told by her visiting home nurses that blood thinners can develop ulcers therefore she came to the emergency room for further evaluation given the ongoing bleeding. She denies any constipation or significant straining to
move her bowels leading up to her admission. She does note that she will have a bowel movement first thing in the morning and then will have a subsequent looser stool after her breakfast and morning coffee but denies any overt diarrhea. She
otherwise denies any abdominal pain, nausea, vomiting, dysphagia, fevers, or chills. She denies any lightheadedness, dizziness, syncope, chest pain, or shortness of breath. She denies any prior history of GI bleeding in the past. She does take
Eliquis with her last dose being Saturday evening. She notes she had been taking Advil in the past but has not used recently and has been only taking Tylenol as needed. She does endorse drinking 1 glass of wine nightly. She denies any smoking
history or drug use. She denies any family history of colorectal cancer but notes that her mother had pancreatic cancer and her father had lung cancer. Her last colonoscopy was done in [address] Mckeon which did show an external nonthrombosed
hemorrhoid, 1 hyperplastic polyp and diverticulosis in the sigmoid, descending, and ascending colon. EGD also was done at that time which showed LA grade B esophagitis and a hiatal hernia with negative biopsies. She otherwise feels well and is
tolerating liquid diet, with no recurrent bleeding. Routine labs on admission showed a hemoglobin of 11.5 which did drop to 10.8, but up to 12.0 this morning without any blood transfusions. Other pertinent lab findings include INR 1.1, platelets
336,000, sodium 130, potassium 4.9, BUN 15, creatinine 0.8, and normal LFTs.
Past Medical History
Past Medical History: GERD, HTN, Hypothyroidism, Psychiatric (Anxiety) and Other (History of unprovoked submassive PE in 2019 on chronic Eliquis, history of COVID-19 infection, restrictive lung disease, chronic bronchitis, recent hospitalization for
pneumonia, psoriasis)
Past Surgical History: Orthopedic (Left total knee replacement, left knee arthroscopy, left hammertoe surgery) and Other (Cataract surgery)
Social History
Tobacco: Non-Smoker
Alcohol: Daily (1 glass of wine)
Drug: None
Family History
Family History: Cancer (Mother-pancreatic cancer, father-lung cancer; no family history of colorectal cancer)
Allergies / Home Medications
Allergy/AdvReac Type Severity Reaction Status Date / Time
codeine [Codeine] Allergy Itching, Verified 12/15/23 12:48
skin
crawling
�Medication �Instructions �Recorded
levothyroxine 75 mcg tablet 75 mcg PO DAILY Thyroid 05/03/19
apixaban 2.5 mg tablet (Eliquis) 2.5 mg PO BID Blood Clot 08/02/23
Prevention/Tx
escitalopram oxalate 10 mg tablet 10 mg PO DAILY depression 08/02/23
carvedilol 25 mg tablet (Coreg) 25 mg PO BID Blood Pressure 09/13/23
cholecalciferol (vitamin D3) 25 25 mcg PO HS Supplement ##0 10/08/23
mcg (1,000 unit) tablet (Vitamin
D3)
collagen 1 dose PO DAILY Supplement 10/08/23
esomeprazole magnesium 40 mg 40 mg PO DAILY Gastrointestinal 10/08/23
capsule,delayed release Issue
bgovxcbgzvmt-frevfand-gbaryx tablet 1 tab PO DAILY Supplement 10/08/23
ipratropium 0.5 mg-albuterol 3 mg 3 ml inhalation R Q4HPRN PRN 10/12/23
(2.5 mg base)/3 mL nebulization shortness of breath #90 mL
soln
losartan 100 mg tablet 100 mg PO DAILY #30 tabs 10/12/23
amlodipine 5 mg tablet 5 mg PO QPM 12/15/23
atorvastatin 10 mg tablet 10 mg PO HS 12/15/23
budesonide 0.5 mg/2 mL suspension 0.5 mg inhalation R QID 12/15/23
for nebulization Lung/Breathing Issues
Review of Systems
-
History Source: Patient
Constitutional: Reports No Symptoms
EENT: Reports No Symptoms
Respiratory: Reports No Symptoms
Cardiac: Reports No Symptoms
Abdomen/GI: Reports Bloody Stools
: Reports No Symptoms
Musculoskeletal: Reports No Symptoms
Skin: Reports No Symptoms
Neurological: Reports No Symptoms
Vital Signs
Temp Pulse Resp BP Pulse Ox
97.8 F 78 16 151/68 95
12/16/23 07:30 12/16/23 07:45 12/16/23 07:45 12/16/23 07:30 12/16/23 07:45
Physical Exam
Exam
General: Well Developed, Well Nourished and No Apparent Distress
HEENT: Normocephalic and Anicteric
Respiratory: Clear
Cardiac: S1/S2 and Regular Rhythm
Breast: Deferred by me
GI: Soft, Non Tender, Non Distended and Normal Bowel Sounds
Rectal: Brown (Dark brown stool, with no obvious blood), Hemorrhoids (External nonbleeding hemorrhoid) and Other (No palpable mass internally)
Skin: Warm and Dry
Neuro: Awake and Alert
Psych: Calm
Results
WBC 8.2 10^3/uL (4.8-10.8) 12/16/23 06:43
Hgb 12.0 g/dL (12.0-16.0) 12/16/23 06:43
Hct 37.4 % (37.0-47.0) 12/16/23 06:43
MCV 85.4 fL (81.0-99.0) 12/16/23 06:43
Plt Count 352 10^3/uL (130-400) 12/16/23 06:43
Absolute Neuts (auto) 7.3 10^3/uL (1.4-6.5) H 12/15/23 14:23
PT 14.0 Sec (11.4-14.6) 12/15/23 14:23
INR 1.10 12/15/23 14:23
Sodium 132 mmol/L (135-145) L 12/16/23 06:43
Potassium 4.7 mmol/L (3.5-5.1) 12/16/23 06:43
Chloride 98 mmol/L (98-107) 12/16/23 06:43
Carbon Dioxide 26 mmol/L (22-30) 12/16/23 06:43
BUN 9 mg/dl (7-17) 12/16/23 06:43
Creatinine 0.6 mg/dL (0.6-1.0) 12/16/23 06:43
Calcium 10.2 mg/dl (8.4-10.2) 12/16/23 06:43
Total Bilirubin 0.7 mg/dl (0.2-1.3) 12/15/23 14:23
AST 22 U/L (14-36) 12/15/23 14:23
ALT 13 U/L (0-35) 12/15/23 14:23
Alkaline Phosphatase 115 U/L (38-126) 12/15/23 14:23
Prior GI Procedures:
EGD: 2014, Dr. Cordero: LA grade B esophagitis, hiatal hernia, otherwise normal. Random biopsies negative for Eddy's esophagus.
Colonoscopy: 2014, Dr. Cordero: External nonthrombosed hemorrhoid, small 5 mm hyperplastic polyp removed from the distal sigmoid colon. Diverticulosis in the sigmoid, descending, and ascending colon.
Assessment / Plan
-
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
restrictive lung disease, GERD, hypertension, hypothyroidism, anxiety, psoriasis, who presents to the emergency room with complaints of rectal bleeding, with no other associated symptoms such as abdominal pain or constipation. Rectal exam showing
bright red blood in the ER with initially mild anemia which appears baseline from 2 months prior. She has had no further rectal bleeding and her hemoglobin remained stable, this morning at 12.0. She denies any other complaints. She does have a
history of having external hemorrhoids along with diverticulosis on prior colonoscopy. Her Eliquis has been placed on hold and her last dose was Saturday evening.
Problem list:
-Rectal bleeding
-Mild normocytic anemia, resolved
-Chronic hyponatremia, stable
-History of diverticulosis
-History of submassive PE on chronic Eliquis
Other part medical history:
-Hypertension
-GERD, esophagitis on chronic PPI
-History of bronchitis
-Restrictive lung disease
-Recent left knee replacement
-Hypothyroidism
-Anxiety
-Psoriasis
Recommendations:
-Etiology of rectal bleeding possibly hemorrhoidal versus diverticular versus other. With diverticulosis on prior colonoscopy. She denies family history of colon cancer. Bleeding likely exacerbated by chronic anticoagulation. No blood on my rectal
exam.
-At this time with a stable hemoglobin and no recurrent bleeding, likely can follow-up outpatient for colonoscopy in the next few weeks. Will review with Dr. Sweet
-Will advance to a regular diet
-Will review timing of restarting Eliquis
-Continue PPI daily w/ hx esophagitis
-Will require pulm/onco clearance for procedures given hx restrictive lung disease/eliquis use, but appears stable from pulmonary standpoint
-Avoid NSAID's
Data Reviewed
-
Old Records: Reviewed
-
-
Thank you for consultation and allowing me to participate in the patient's care. Please call the telecommunications consultant GI physician during the after hours with any questions or concerns.
[2023-12-16 15:30] VITALS: BP 146/61
--- NOTE | 2023-12-16 16:42 | CM ---
Alert awake oriented patient who lives with her son Guzman who lives in [place] home with 1 steps to enter.She is independent in driving and in all activities of daily living.Offered VN she declined.
walker
Hx of [facility]/No SNF
Pharmacy [facility]
PCP Dr Dilcia Forrest
PLAN Home pt said she would set up out pt PT
[2023-12-16] MEDS: NORVASC 5 MG PO (18:46)
[2023-12-16] MEDS: DUONEB 3 ML INH (19:39)
[2023-12-16] MEDS: ELIQUIS 2.5 MG PO (20:44)
[2023-12-16] MEDS: VITAMIN D3 (cholecalciferol) 25 MCG PO (22:07)
[2023-12-16] MEDS: LIPITOR 10 MG PO (22:07)
[2023-12-16 23:37] VITALS: BP 152/72
[2023-12-17 06:28] LABS: Hematocrit 33.2 % (37.0-47.0); Hemoglobin 10.8 g/dL (12.0-16.0)
[2023-12-17 07:30] VITALS: BP 150/64
[2023-12-17] MEDS: PULMICORT INH (07:48)
[2023-12-17] MEDS: SYNTHROID 75 MCG PO (08:34)
[2023-12-17] MEDS: PROTONIX 40 MG PO (08:34)
[2023-12-17] MEDS: LEXAPRO 10 MG PO (08:34)
[2023-12-17] MEDS: ELIQUIS 2.5 MG PO (08:34)
[2023-12-17] MEDS: THERAGRAN 1 TABLET PO (08:34)
[2023-12-17] MEDS: COREG 25 MG PO (08:35)
[2023-12-17] MEDS: COZAAR 100 MG PO (08:35)
--- NOTE | 2023-12-17 09:08 | W.PN.HOSP.TC ---
Today's Communication/Plan
-
Discharge planning today.
Assessment / Plan
Assessment / Plan
Physical exam:
General: No acute distress
HEENT: Normocephalic, Atraumatic and Moist Mucous Membranes
Respiratory: Clear to Auscultation; Negative Wheezes, Rales or Rhonchi
Cardiac: Regular Rhythm and S1/S2
GI: Soft, Nontender and Nondistended
Musculoskeletal: No Clubbing, No Cyanosis and No Edema
Neuro: Awake, Alert and Oriented
Psych: Calm
A/P:
Impression:
Acute GI bleed
Acute blood loss anemia
Hyponatremia
Conditions prior to presentation:
Alcohol use disorder
HTN
HLD
hypothyroidism
moderate/severe AR pulmonary HTN
restrictive lung disease with chronic hypoxia
tobacco abuse/ex-smoker
GERD
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
OA
obesity
psoriasis
PLAN:
Low residue diet
Monitor hemoglobin--> hemoglobin 10.8 today
GI cleared her for discharge today
GI consult appreciated
GI okay to resume Eliquis yesterday
No issues with alcohol withdrawal but if any signs will place MSA protocol
Continue her antihypertensive medications but place holding parameters
Continue her oral PPI
Continue her inhalers
SCDs for DVT prophylaxis
CODE STATUS full code
Anticipated Discharge: Today
Subjective/Interval History
-
Date of Service: December 17, 2023
Patient had bowel movement. No bleeding.
Objective Data
-
Labs:
Laboratory Results
12/17/23
05:28
Hgb 10.8 L
Hct 33.2 L
Vital Signs:
Vital Signs
Temp Pulse Resp BP Pulse Ox
98.9 F 81 16 112/57 95
12/17/23 07:30 12/17/23 08:35 12/17/23 07:30 12/17/23 08:35 12/17/23 07:30
I&O
12/16/23 12/17/23 12/18/23
06:59 06:59 06:59
Intake Total 960 / 960
Balance 960 / 960
Review of Systems
-
All other systems: Reviewed and negative
--- NOTE | 2023-12-17 09:19 | W.PN.GI.CBS2 ---
Addendum entered and electronically signed by Do Mathur DO 12/17/23 11:40:
I saw and examined the patient.
The SLEEVE MACHINE TENDER or PA's note was reviewed and I agree with the note.
Comment: Patient seen in follow-up. No bleeding overnight, hemoglobin stable at 12.0 this morning. She clinically feels well and wants to go home. Okay for discharge from GI perspective with planned outpatient colonoscopy in the next 2-3 weeks. Our
office will reach out to her to schedule. Will require clearance for discontinuation of eliquis for 48 hours prior to colonoscopy.
GI will sign off. Please call with questions.
Original Note:
Today's Communication / Plan
-
Advance back to regular diet. Outpatient colonoscopy in 2 to 3 weeks. Okay for discharge from a GI standpoint.
Assessment / Plan
-
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
restrictive lung disease, GERD, hypertension, hypothyroidism, anxiety, psoriasis, who presents to the emergency room with complaints of rectal bleeding, with no other associated symptoms such as abdominal pain or constipation. Rectal exam showing
bright red blood in the ER with initially mild anemia which appears baseline from 2 months prior. She has had no further rectal bleeding and her hemoglobin remained stable, this morning at 12.0. She denies any other complaints. She does have a
history of having external hemorrhoids along with diverticulosis on prior colonoscopy. Her Eliquis was placed on hold at the time of admission.
Problem list:
-Rectal bleeding
-Mild normocytic anemia, resolved
-Chronic hyponatremia, stable
-History of diverticulosis
-History of submassive PE on chronic Eliquis
Other part medical history:
-Hypertension
-GERD, esophagitis on chronic PPI
-History of bronchitis
-Restrictive lung disease
-Recent left knee replacement
-Hypothyroidism
-Anxiety
-Psoriasis
Recommendations:
-Etiology of rectal bleeding possibly hemorrhoidal versus diverticular versus other. With diverticulosis on prior colonoscopy.
-She has had no further rectal bleeding at this time, likely self-limiting secondary to hemorrhoids versus diverticular disease exacerbated with anticoagulation.
-Will arrange for outpatient colonoscopy after receiving clearances from her senior investigator/laminator preforms to hold her blood thinner.
-I advised her to monitor for recurrent signs of bleeding and to call our office or if significant bleeding to return to the emergency room.
-Continue Eliquis as previously dosed
-Continue PPI daily w/ hx esophagitis
-Avoid NSAID's
-Can advance back to regular diet
-Okay for discharge at this time from GI standpoint. We will sign off at this time, please call back with questions or concerns.
Subjective
Subjective
Date of Service: December 17, 2023
The pt was seen and examined at the bedside. She denies any complaints today. She has had no further bleeding after resuming her Eliquis and her hemoglobin is stable at 10.8.
Objective
Data Reviewed
Laboratory Data:
Laboratory Results
12/17/23 05:28
12/16/23 06:43
Laboratory Results
PT 14.0 Sec (11.4-14.6) 12/15/23 14:23
INR 1.10 12/15/23 14:23
Total Bilirubin 0.7 mg/dl (0.2-1.3) 12/15/23 14:23
AST 22 U/L (14-36) 12/15/23 14:23
ALT 13 U/L (0-35) 12/15/23 14:23
Alkaline Phosphatase 115 U/L (38-126) 12/15/23 14:23
Vital Signs and I&O:
Vital Signs
Temp Pulse Resp BP Pulse Ox
98.9 F 81 16 112/57 95
12/17/23 07:30 12/17/23 08:35 12/17/23 07:30 12/17/23 08:35 12/17/23 07:30
I&O
12/16/23 12/17/23 12/18/23
06:59 06:59 06:59
Intake Total 960 / 960
Balance 960 / 960
Physical Exam
Physical Exam
HEENT: Anicteric
Cardiology: S1 and S2 (Regular rate/rhythm)
Pulmonary: Clear (Overall diminished)
GI: Soft, Non Distended, Non Tender and Normal Bowel Sounds
Neuro: Non Focal
--- NOTE | 2023-12-17 11:53 | W.DCSUMMARY ---
Discharge Summary
Discharge Data
Date of Admission: 12/15/23
Date of Discharge: 12/17/23
-
Pending Results: No
Hospital Course
Patient 83 years old female with history of PE in the past on chronic anticoagulation, restrictive lung disease, presented to the hospital with bright blood per rectum. GI was consulted. Eliquis was held and her hemoglobin was monitored. Rectal
bleed stopped and her hemoglobin remained stable. GI recommended to restart Eliquis while inpatient. She did well and she did not have any recurrence of rectal bleeding. GI is planning to do an outpatient colonoscopy over the next couple weeks as
outpatient. Otherwise, patient is hemodynamically stable and no further bleeding and tolerating anticoagulants okay. GI cleared her for discharge today. She will be discharged in stable condition today.
Discharge duration: 35 minutes
Discharge Plan
-
Patient Disposition: Home (Routine Discharge)
Discharge Diagnosis/Procedures: Acute gastrointestinal bleed. Acute blood loss anemia. Hyponatremia. History of pulmonary embolism on anticoagulation.
Diet: Low Residue
Activity: As tolerated
Driving Restrictions: As prior to admission
Blood Work: Please PCP to order CBC, BMP within 1 week
Referrals:
Dilcia Forrest MD [Family Provider] - in less than 1 week
Jody Sweet MD [Active] - in two to three weeks (for colonoscopy. Our office will call you to schedule upon clearances from your clinical ob/fishing tool supervisor.)
Prescriptions:
Continued
levothyroxine 75 MCG tablet
75 mcg PO DAILY
escitalopram oxalate 10 mg Tablet
10 mg PO DAILY
Eliquis 2.5 mg Tablet
2.5 mg PO BID
carvedilol [Coreg] 25 mg Tablet
25 mg PO BID
esomeprazole magnesium 40 mg Capsule,Delayed Release(Dr/Ec)
40 mg PO DAILY
wsfzumbczyba-hgpjdjnv-gheweh Tablet
1 tab PO DAILY
cholecalciferol (vitamin D3) [Vitamin D3] 25 mcg (1,000 unit) Tablet
25 mcg PO HS Qty: 0
collagen powder
1 dose PO DAILY
Patient Comments:
10/08/2023, 1 scoop.
ipratropium-albuterol 0.5 mg-3 mg(2.5 mg base)/3 mL Solution For Nebulization
3 ml inhalation R Q4HPRN PRN (Reason: shortness of breath) Qty: 90 0RF
losartan 100 mg Tablet
100 mg PO DAILY Qty: 30 0RF
atorvastatin 10 mg tablet
10 mg PO HS
amlodipine 5 mg tablet
5 mg PO QPM
budesonide 0.5 mg/2 mL suspension for nebulization
0.5 mg inhalation R QID
Patient Comments:
10/08/2023, per pt., they use this med. once a day in the morning and they mix it with their Duoneb and inhale together.
Discharge Orders:
Discharge Patient (As Directed); Ordered 12/17/23
Ordered By: Ravi Juarez
Discharge Date and Time
Discharge Date/Time: 12/17/23 12:34
Print Language: MAORI
[2023-12-17 12:25] VITALS: BP 121/61
--- NOTE | 2023-12-17 14:43 | CM ---
MD entered order for discharge.
Pt said she is ready for discharge.
Offered Vn she declined .
She said she was going to resume out pt PT.Pt will set up herself.
PLAN Home no needs
== END 2023-12-17 12:34 | disposition home or self-care (01) | DRG 378 ==
LOC: 3 WEST ACU 15:50
PROVIDERS: ADMITTING PHYSICIAN Hospitalist; CONSULT PHYSICIAN Internal Medicine Gastroenterology; EMERGENCY PHYSICIAN Emergency Medicine; FAMILY PHYSICIAN Internal Medicine
DX: K92.1 Melena (principal); D62 Acute posthemorrhagic anemia; E87.1 Hypo-osmolality and hyponatremia; J98.4 Other disorders of lung; E03.9 Hypothyroidism, unspecified; I10 Essential (primary) hypertension; E78.00 Pure hypercholesterolemia, unspecified; F10.10 Alcohol abuse, uncomplicated; I27.20 Pulmonary hypertension, unspecified; E66.9 Obesity, unspecified; Z68.28 Body mass index [BMI] 28.0-28.9, adult; Z86.711 Personal history of pulmonary embolism; Z79.01 Long term (current) use of anticoagulants
CPT/HCPCS: 80048; 80053; 85014; 85018; 85025; 85027; 85610; 86850; 86900; 86901; 94640; 99285

== ENCOUNTER → 2024-01-08 06:28 | Day surgery (SDC) | payer OTHER, SELFPAY | LOC: GI 06:28 | PROVIDERS: ATTENDING PHYSICIAN Internal Medicine Gastroenterology | DX: D12.0 Benign neoplasm of cecum (principal); D12.2 Benign neoplasm of ascending colon; K63.89 Other specified diseases of intestine; K57.30 Diverticulosis of large intestine without perforation or abscess without bleeding; K64.0 First degree hemorrhoids; K52.9 Noninfective gastroenteritis and colitis, unspecified | CPT/HCPCS: 45385; 45380; 88305 ==

== ENCOUNTER → 2024-02-12 09:20 | Outpatient (REF) | payer OTHER, SELFPAY | LOC: HWRCS 09:20 | PROVIDERS: ATTENDING PHYSICIAN Internal Medicine Cardiovascular Disease; FAMILY PHYSICIAN Internal Medicine | DX: I51.7 Cardiomegaly (principal) | CPT/HCPCS: 93306 ==

== ENCOUNTER 2024-03-09 06:49 | Day surgery (SDC) | payer OTHER, SELFPAY ==
[2024-03-09 13:39] VITALS: BMI 28.2
[2024-03-09 13:41] VITALS: BMI 28.2
[2024-03-09 13:42] VITALS: BP 123/61
== END 2024-03-09 14:04 | disposition home or self-care (01) ==
LOC: SDS 06:49
PROVIDERS: ATTENDING PHYSICIAN Surgery
DX: N32.89 Other specified disorders of bladder (principal); Z53.8 Procedure and treatment not carried out for other reasons; Z79.01 Long term (current) use of anticoagulants
CPT/HCPCS: 52204; A9589

== ENCOUNTER 2024-04-03 06:21 | Day surgery (SDC) | payer OTHER, SELFPAY ==
[2024-04-03] VITALS (7 sets, daily range): BP systolic 128–154; BP diastolic 61–78; BMI 27.4
[2024-04-03] MEDS: CYSVIEW KIT 100 MG INTRAVES (13:02)
[2024-04-03] MEDS: NORMOSOL-R 1000 IV (13:03)
[2024-04-03] MEDS: TYLENOL 1000 MG PO (15:26)
[2024-04-03] MEDS: DETROL LA 4 MG PO (17:31)
[2024-04-03] MEDS: Pyridium 200 MG PO (17:31)
--- NOTE | 2024-04-03 18:10 | SUR.PHASEI ---
patient awake alert and oriented, vss, denies distress, though sats 88- 95% encourage deep breathing. IS started - patient familiar with same. TV 850 - 950. encouraged to sleep upright. use IS and use nebulizer tonight at home, although lungs
clear now.
== END 2024-04-03 18:36 | disposition home or self-care (01) ==
LOC: SDS 06:21
PROVIDERS: ATTENDING PHYSICIAN Surgery
PROC: 0TBB8ZZ Excision of Bladder, Via Natural or Artificial Opening Endoscopic (ICD-10-PCS; 2024-04-03)
DX: D30.3 Benign neoplasm of bladder (principal); Z88.5 Allergy status to narcotic agent
CPT/HCPCS: 52234; 88305; A9589

== ENCOUNTER → 2024-10-08 14:19 | Outpatient (REF) | payer OTHER, SELFPAY | LOC: HWRAD 14:19 | PROVIDERS: ATTENDING PHYSICIAN Physician Assistant; FAMILY PHYSICIAN Internal Medicine | DX: N81.0 Urethrocele (principal); Z13.820 Encounter for screening for osteoporosis; M54.50 Low back pain, unspecified | CPT/HCPCS: 72114; 72202 ==

== ENCOUNTER → 2025-04-06 08:27 | Outpatient (REF) | payer OTHER, SELFPAY | LOC: PET 08:27 | PROVIDERS: ATTENDING PHYSICIAN Internal Medicine Cardiovascular Disease | DX: R06.09 Other forms of dyspnea (principal) | CPT/HCPCS: 78431; A9555; J2785 ==

== ENCOUNTER → 2025-04-14 11:08 | Outpatient (REF) | payer OTHER, SELFPAY | LOC: HWRCS 11:08 | PROVIDERS: ATTENDING PHYSICIAN Internal Medicine Cardiovascular Disease | DX: R06.09 Other forms of dyspnea (principal); R94.31 Abnormal electrocardiogram [ECG] [EKG]; I35.1 Nonrheumatic aortic (valve) insufficiency; I10 Essential (primary) hypertension; E78.00 Pure hypercholesterolemia, unspecified; R26.89 Other abnormalities of gait and mobility | CPT/HCPCS: 93306 ==

== ENCOUNTER → 2025-05-17 10:31 | Outpatient (REF) | payer OTHER, SELFPAY | LOC: EMG 10:31 | PROVIDERS: ATTENDING PHYSICIAN Orthopaedic Surgery; FAMILY PHYSICIAN Internal Medicine | DX: R20.0 Anesthesia of skin (principal) | CPT/HCPCS: 95886; 95911 ==